=== PATIENT | female | born 1930 | race Caucasian/White ===

== ENCOUNTER → 2017-01-04 | Outpatient (CLI) | payer BC ==
[~2017-01-04] MED LIST: CMD/25 PO; FOLIC ACID PO; HYDR-5688 PO; IRON PO; LEVO50TA PO; MACU HEALTH PO; METO-478 PO; OMEP20TA14 PO; SUMA100T16 PO; VITAMIN B12 PO; VITAMIN B6 PO; WARF5INJ PO
[2017-01-04 17:52] LABS: BASO % 0.3 %; BASO ABS # 0.02 K/uL (0-0.2); COMPLETE YES; EOS % 1.5 %; HEMATOCRIT 39.2 % (37-47); IG% 0.1 %; LYMPH % 35.4 %; LYMPH ABS # 2.43 K/uL (1.2-3.4); MEAN CORPUSCULAR HEMOGLOBIN 31.7 pg (25-34); MEAN CORPUSCULAR HGB CONC 32.7 g/dl (32-36); MEAN PLATELET VOLUME 9.9 fL (7.4-10.4); MONO % 11.4 %; NEUT % 51.3 %; PLATELET COUNT 293 K/uL (130-400); RED BLOOD COUNT 4.04 M/uL (4.2-5.4); WHITE BLOOD COUNT 6.86 K/uL (4.8-10.8)
[2017-01-04 18:31] LABS: ALT/SGPT 21 U/L (12-78); AST/SGOT 20 U/L (15-37); BLOOD UREA NITROGEN 19 mg/dl (7-18); BUN/CREATININE RATIO 22.8 (10-20); CARBON DIOXIDE 24 mmol/L (21-32); CHLORIDE 107 mmol/L (98-107); CHOLESTEROL 209 mg/dl (0-200); CREATININE 0.81 mg/dl (0.60-1.20); GLUCOSE 81 mg/dl (70-99); POTASSIUM 4.6 mmol/L (3.5-5.1); SODIUM 143 mmol/L (136-145); TRIGLYCERIDES 129 mg/dl (0-150); VERY LOW DENSITY LIPOPROT CALC 26 mg/dl
[2017-01-04 18:42] LABS: ALB/GLOB RATIO 1.1 (0.9-2); ALKALINE PHOSPHATASE 90 U/L (45-117); HDL CHOLESTEROL 70 mg/dl; LDL CHOLESTEROL CALCULATED 113 mg/dl
[2017-01-04 19:02] LABS: CALCIUM 9.7 mg/dl (8.5-10.1)
--- NOTE | 2017-01-10 09:36 | CODING QUERY MEDICAL NECESSITY ---
SUPPORTING DIAGNOSIS NEEDED Dr. Carrasquillo, A supporting diagnosis is required for the test/procedure performed on this patient in order for us to be reimbursed by the patient's insurance. Please provide a supporting diagnosis for the following test/procedure listed below next to the test name along with your signature. *If there is no additional diagnosis for this patient that would support the following test/procedure please document that below next to the test/procedure. Test(s)/Procedure(s) that require a supporting diagnosis: * ([id number]) B12 VITAMIN LEVEL DIAGNOSIS: DATE OF SERVICE: 01/04/17 Provider Signature: Date: Thank you Mc Alfaro [facility] Information Management Once completed, please kindly fax back to [phone] For questions please call [phone]
== END | disposition home or self-care (01) ==
LOC: C.LABBFT 11:47
PROVIDERS: ATTEND Internal Medicine
DX: Z00.00 Encounter for general adult medical examination without abnormal findings (principal); E03.9 Hypothyroidism, unspecified; R41.89 Other symptoms and signs involving cognitive functions and awareness; E78.5 Hyperlipidemia, unspecified; I48.91 Unspecified atrial fibrillation; M81.0 Age-related osteoporosis without current pathological fracture; R41.3 Other amnesia

== ENCOUNTER → 2017-07-14 | Outpatient (CLI) | payer BC ==
--- NOTE | 2017-07-14 19:19 | DIAGNOSTIC IMAGING REPORT ---
R RIBS UNILATERAL WITH PA CHEST CLINICAL HISTORY: FALL-RIGHT LOWER ANTERIOR RIB PAIN COMPARISON STUDY: Chest 01/28/2011. FINDINGS: The lungs remain hyperexpanded. Slightly displaced right lateral fourth and fifth rib fractures. No pneumothorax. Mild interstitial thickening is likely chronic. Large hiatus hernia, unchanged. The heart is normal in size. No new focal lung consolidations. Trace right pleural effusion. IMPRESSION: 1. Mildly displaced right lateral fourth and fifth rib fractures. 2. Trace right pleural effusion versus hemothorax. 3. No pneumothorax. Electronically signed by: Dusty Petit M.D. 07/14/2017 7:18 PM Dictated Date/Time: 07/14/2017 7:15 PM
== END | disposition home or self-care (01) ==
LOC: C.RAD 18:40
PROVIDERS: ATTEND Internal Medicine
DX: S22.41XA Multiple fractures of ribs, right side, initial encounter for closed fracture (principal); W19.XXXA Unspecified fall, initial encounter

== ENCOUNTER → 2017-07-27 | Outpatient (CLI) | payer BC ==
[~2017-07-27] MED LIST changes: +APIX1TAB3 PO; +ASPI81TA28 PO; +ATOR-22 PO; +ATOR10TA82 PO; +CHOL2000 PO; +CYAN100020 PO; +ELQ25 PO; +FERR1TAB23 PO; +FURO-85 PO; +LEVO75TA PO; +METO25TA3 PO; +OMEPRAZOLE PO; +OXYC-57 PO; +OXYC-737 PO; +OXYC-90 PO; +SERT-234 PO; +TRAM-10 PO
--- NOTE | 2017-07-27 14:11 | DIAGNOSTIC IMAGING REPORT ---
CHEST 2 VIEWS ROUTINE CLINICAL HISTORY: J90 Pleural [id number] dyspnea COMPARISON STUDY: 10/26/2011 FINDINGS: Mild cardia megaly. Fixed hiatal hernia. Lungs are clear. Mild chronic apical fibrotic change. IMPRESSION: Chronic change. Fixed hiatal hernia. No acute process. The above report was generated using voice recognition software. It may contain grammatical, syntax or spelling errors. Electronically signed by: Davidson Gonzalez M.D. 07/27/2017 2:10 PM Dictated Date/Time: 07/27/2017 1:56 PM
== END | disposition home or self-care (01) ==
LOC: C.RAD1850 13:32
PROVIDERS: ATTEND Internal Medicine
DX: J90 Pleural effusion, not elsewhere classified (principal)

== ENCOUNTER 2017-11-04 11:44 | Emergency (ER) | payer BC ==
[~2017-11-04] VITALS: Ht 160 cm; Wt 62.0 kg
[~2017-11-04 11:44] MED LIST changes: -APIX1TAB3 PO; -ASPI81TA28 PO; -ATOR-22 PO; -ATOR10TA82 PO; -CHOL2000 PO; -CYAN100020 PO; -ELQ25 PO; -FERR1TAB23 PO; -FURO-85 PO; -LEVO75TA PO; -MACU HEALTH PO; -METO25TA3 PO; -OMEP20TA14 PO; -OMEPRAZOLE PO; -OXYC-57 PO; -OXYC-737 PO; -OXYC-90 PO; -SERT-234 PO; -SUMA100T16 PO; -TRAM-10 PO
[2017-11-04 11:47] VITALS: TEMP 36.4; Ht 160 cm; Wt 62.0 kg
[2017-11-04] MEDS ORDERED: ONDANSETRON INJ 2 MG/ML 2 ML VIAL IV STA (12:02)
[2017-11-04] MEDS ORDERED: MoRPHine SULFATE 4 MG/ML 1 ML CARP\\VIAL IV STA (12:02)
--- NOTE | 2017-11-04 12:54 | DIAGNOSTIC IMAGING REPORT ---
CT OF THE HEAD WITHOUT CONTRAST CLINICAL HISTORY: Fall with head injury. COMPARISON STUDY: Head CT February 28, 2012. TECHNIQUE: Helical axial images of the head were obtained without IV contrast. Automated exposure control was utilized for the study. A dose lowering technique was utilized adhering to the principles of ALARA. FINDINGS: No acute intracranial hemorrhage, midline shift or mass effect is present. Ventricular system is unremarkable for age. The basilar cisterns are patent. Old left frontal lobe infarct is noted. Multiple white matter hypodensities are unchanged. There are no findings to suggest acute dural sinus thrombosis or acute territorial infarct. There is no calvarial fracture. Facial bones will be reported separately. IMPRESSION: 1. No acute intracranial findings. 2. No calvarial fracture. 3. 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 Electronically signed by: Jeffrey Carrasquillo M.D. 11/04/2017 12:53 PM Dictated Date/Time: 11/04/2017 12:50 PM
--- NOTE | 2017-11-04 12:58 | DIAGNOSTIC IMAGING REPORT ---
CT OF THE CERVICAL SPINE WITHOUT CONTRAST CLINICAL HISTORY: Fall. COMPARISON STUDY: Cervical spine MRI April 27, 2012. TECHNIQUE: Helical axial images of the cervical spine were obtained without IV contrast. Sagittal and coronal reconstructions were viewed. A dose lowering technique was utilized adhering to the principles of ALARA. FINDINGS: The craniocervical junction is intact. No acute cervical spine fracture is present. There is moderate to severe multilevel degenerative disc disease and facet arthrosis of the cervical spine. There is no prevertebral edema. There is no pneumothorax within visualized portions of the lung apices. IMPRESSION: No acute cervical spine fracture or subluxation. Electronically signed by: Jeffrey Carrasquillo M.D. 11/04/2017 12:56 PM Dictated Date/Time: 11/04/2017 12:53 PM
--- NOTE | 2017-11-04 13:00 | DIAGNOSTIC IMAGING REPORT ---
CT SCAN OF THE FACIAL BONES WITHOUT IV CONTRAST CLINICAL HISTORY: Fall. Facial injury. COMPARISON STUDY: CT scan of the paranasal sinuses dated 07/31/2008. TECHNIQUE: High-resolution CT scan of the facial bones is performed. Images are reviewed in the axial, sagittal, and coronal planes. IV contrast was not administered for this examination. A dose lowering technique was utilized adhering to the principles of ALARA. FINDINGS: The skeletal structures are osteopenic. There is a minimally depressed and age indeterminant fracture of the right nasal bone. No additional facial bone fracture is identified. The bony nasal septum is intact noting rightward deviation. The bony orbits are intact and the orbital contents are within normal limits noting bilateral ocular lens implants. The zygomatic arches and pterygoid plates are preserved. The maxilla and mandible are intact. Advanced degenerative change is seen in the temporomandibular joints. There are no layering blood products within the paranasal sinuses. Trace mucosal thickening is seen in the right maxillary antrum. The remaining paranasal sinuses and the mastoid air cells are clear. The visualized calvarium appears intact. The upper cervical spine appears maintained noting multilevel spondylosis. Brain parenchyma demonstrates age-related involutional change. Left frontal encephalomalacia is consistent with a remote infarct. There is atherosclerotic calcification of the left carotid bulb. IMPRESSION: 1. There is an age indeterminant and minimally depressed fracture of the right nasal bone. 2. No additional facial bone fracture is identified. 3. Additional findings as above. Electronically signed by: Tyler Mata M.D. 11/04/2017 12:59 PM Dictated Date/Time: 11/04/2017 12:53 PM
--- NOTE | 2017-11-04 13:04 | DIAGNOSTIC IMAGING REPORT ---
R HUMERUS MIN 2 VIEWS ROUTINE HISTORY: 87 years-old Female r shoulder pain acute right arm pain status post fall COMPARISON: None available TECHNIQUE: 2 views of the right humerus FINDINGS: There is an acute displaced and angulated obliquely oriented fracture of the mid to distal diaphyseal humerus with 1.6 cm lateral displacement and 20 degrees apex lateral angulation. Moderate soft tissue swelling. The bones are moderately demineralized with degenerative changes seen about the elbow and shoulder. IMPRESSION: Acute displaced and angulated mid to distal diaphyseal humeral fracture with underlying osteopenic appearance of the bones. The above report was generated using voice recognition software. It may contain grammatical, syntax or spelling errors. Electronically signed by: Ti Del Cid M.D. 11/04/2017 1:02 PM Dictated Date/Time: 11/04/2017 1:01 PM
[2017-11-04] MEDS ORDERED: OXYC1TAB3 PO (14:12)
[2017-11-04 15:00] VITALS: BP 103/52; PULSE 65; O2SAT 90
--- NOTE | 2017-11-04 16:35 | EMERGENCY ROOM VISIT NOTE ---
History Report prepared by Wedny: Jerrica Langston Under the Supervision of: Dr. Eliel De La Garza D.O. First contact with patient: 11:51 Chief Complaint: FALL Stated Complaint: FELL, RIGHT ARM PAIN History of Present Illness The patient is a 87 year old female who presents to the Emergency Room with complaints of an episode of a fall occurring about an hour ago. The patient states she was wearing new shoes and she states when she was walking her one shoe came off which tripped her. She states she fell forward and hit her nose on the ground. She reports some right arm pain. She states "I think I broke my arm". Pain is a 10 out of 10 and constant in the right upper arm. Movement. Does improve with rest. No paresthesias. No numbness. She denies loss of consciousness. Pt denies headache, change in vision, fevers, chest pain, shortness of breath, neck pain, leg pain, nausea, vomiting, diarrhea, pain with urination, and melena. The patient is not on any blood thinners. Source of History: patient Onset: an hour ago Position: other (generalized) Quality: other (fall) Timing: other (episode) Associated Symptoms: No LOC, No fevers, No headache, No chest pain, No SOB, No nausea, No vomiting, No urinary symptoms Review of Systems See HPI for pertinent positives & negatives. A total of 10 systems reviewed and were otherwise negative. Past Medical & Surgical Medical Problems: (1) Gastroesophageal reflux disease (2) Hyperlipidemia (3) Migraine with typical aura Family History Patient reports no known family medical history. Social History Smoking Status: Never Smoker Alcohol Use: none Marital Status: Occupation Status: retired Current/Historical Medications Scheduled Levothyroxine Sodium (Synthroid), 50 MCG PO DAILY Metoprolol Succinate (Toprol Xl), 12.5 MG PO BID Omeprazole Magnesium (Prilosec Otc), 20 MG PO DAILY Sumatriptan Succinate (Imitrex), 50 MG PO PRN Warfarin Sod (Coumadin), 2.5 MG PO DAILY Warfarin Sodium (Coumadin), 5 MG PO TTH [Folic Acid], 1 TAB PO DAILY [Iron], 65 MCG PO DAILY [[facility]], 1 TAB PO DAILY [Vitamin B12], 1 TAB PO DAILY [Vitamin B6], 1 TAB PO DAILY Scheduled PRN Hydrocodone/Acetaminophen 5MG/325MG ([place] 5MG/325MG), 1 TABLET PO DAILY PRN for Pain Oxycodone Immediate Rel Tab (Roxicodone Ir), 5 MG PO Q6H PRN for Pain Allergies Coded Allergies: Prednisone (Verified Adverse Reaction, Mild, SEVERE EYE LID DROPPING, ) Physical Exam Vital Signs Date Time Temp Pulse Resp B/P (MAP) Pulse Ox O2 Delivery O2 Flow Rate FiO2 11/04/17 15:00 65 12 103/52 90 11/04/17 14:08 62 16 105/53 94 11/04/17 11:47 36.4 56 20 101/56 96 Room Air Physical Exam GENERAL: alert, well appearing, well nourished, no distress, non-toxic HEAD: normal cephalic, bruising over bridge of nose. EYE EXAM: normal conjunctiva, PERRL and EOM's grossly intact OROPHARYNX: no exudate, no erythema, lips, buccal mucosa, and tongue normal and mucous membranes are moist EARS: TMs clear b/l NECK: supple, no nuchal rigidity, no adenopathy, non-tender CHEST: stable to compression anteriorly and posteriorly LUNGS: clear to auscultation. Normal chest wall mechanics HEART: no murmurs, S1 normal and S2 normal ABDOMEN: abdomen soft, non-tender, normo-active bowel sounds, no masses, no rebound or guarding. PELVIS: stable to compression anteriorly and posteriorly BACK: Back is symmetrical on inspection and there is no deformity, no midline tenderness, no CVA tenderness. UPPER EXTREMITIES: Significant pain on palpation of right mid-humorous, radial pulses 2/4 full active and passive ROM of all extremities besides right humerus. She does have a good grasp along with abduction and flexion extension of the right wrist. LOWER EXTREMITIES: full active and passive range of motion of all joints without tenderness to palpation NEURO EXAM: Normal sensorium, cranial nerves II-XII grossly intact, normal speech, no gross weakness of legs. GCS: 15. Medical Decision & Procedures ER Provider Diagnostic Interpretation: Radiology results as stated below per my review and the radiologist's interpretation: CT OF THE CERVICAL SPINE WITHOUT CONTRAST CLINICAL HISTORY: Fall. COMPARISON STUDY: Cervical spine MRI April 27, 2012. TECHNIQUE: Helical axial images of the cervical spine were obtained without IV contrast. Sagittal and coronal reconstructions were viewed. A dose lowering technique was utilized adhering to the principles of ALARA. FINDINGS: The craniocervical junction is intact. No acute cervical spine fracture is present. There is moderate to severe multilevel degenerative disc disease and facet arthrosis of the cervical spine. There is no prevertebral edema. There is no pneumothorax within visualized portions of the lung apices. IMPRESSION: No acute cervical spine fracture or subluxation. Electronically signed by: Jeffrey Carrasquillo M.D. CT OF THE HEAD WITHOUT CONTRAST CLINICAL HISTORY: Fall with head injury. COMPARISON STUDY: Head CT February 28, 2012. TECHNIQUE: Helical axial images of the head were obtained without IV contrast. Automated exposure control was utilized for the study. A dose lowering technique was utilized adhering to the principles of ALARA. FINDINGS: No acute intracranial hemorrhage, midline shift or mass effect is present. Ventricular system is unremarkable for age. The basilar cisterns are patent. Old left frontal lobe infarct is noted. Multiple white matter hypodensities are unchanged. There are no findings to suggest acute dural sinus thrombosis or acute territorial infarct. There is no calvarial fracture. Facial bones will be reported separately. IMPRESSION: 1. No acute intracranial findings. 2. No calvarial fracture. 3. 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 Electronically signed by: Jeffrey Carrasquillo M.D. R HUMERUS MIN 2 VIEWS ROUTINE HISTORY: 87 years-old Female r shoulder pain acute right arm pain status post fall COMPARISON: None available TECHNIQUE: 2 views of the right humerus FINDINGS: There is an acute displaced and angulated obliquely oriented fracture of the mid to distal diaphyseal humerus with 1.6 cm lateral displacement and 20 degrees apex lateral angulation. Moderate soft tissue swelling. The bones are moderately demineralized with degenerative changes seen about the elbow and shoulder. IMPRESSION: Acute displaced and angulated mid to distal diaphyseal humeral fracture with underlying osteopenic appearance of the bones. The above report was generated using voice recognition software. It may contain grammatical, syntax or spelling errors. Electronically signed by: Ti Del Cid M.D. CT SCAN OF THE FACIAL BONES WITHOUT IV CONTRAST CLINICAL HISTORY: Fall. Facial injury. COMPARISON STUDY: CT scan of the paranasal sinuses dated 07/31/2008. TECHNIQUE: High-resolution CT scan of the facial bones is performed. Images are reviewed in the axial, sagittal, and coronal planes. IV contrast was not administered for this examination. A dose lowering technique was utilized adhering to the principles of ALARA. FINDINGS: The skeletal structures are osteopenic. There is a minimally depressed and age indeterminant fracture of the right nasal bone. No additional facial bone fracture is identified. The bony nasal septum is intact noting rightward deviation. The bony orbits are intact and the orbital contents are within normal limits noting bilateral ocular lens implants. The zygomatic arches and pterygoid plates are preserved. The maxilla and mandible are intact. Advanced degenerative change is seen in the temporomandibular joints. There are no layering blood products within the paranasal sinuses. Trace mucosal thickening is seen in the right maxillary antrum. The remaining paranasal sinuses and the mastoid air cells are clear. The visualized calvarium appears intact. The upper cervical spine appears maintained noting multilevel spondylosis. Brain parenchyma demonstrates age-related involutional change. Left frontal encephalomalacia is consistent with a remote infarct. There is atherosclerotic calcification of the left carotid bulb. IMPRESSION: 1. There is an age indeterminant and minimally depressed fracture of the right nasal bone. 2. No additional facial bone fracture is identified. 3. Additional findings as above. Electronically signed by: Tyler Mata M.D. Medications Administered Medications (Trade) Dose Ordered Sig/Katie Route Start Time Stop Time Status Last Admin Dose Admin Morphine Sulfate (MoRPHine SULFATE INJ) 4 mg NOW STAT IV 11/04/17 12:02 11/04/17 12:04 DC 11/04/17 12:24 4 MG Ondansetron HCl (Zofran Inj) 4 mg NOW STAT IV 11/04/17 12:02 11/04/17 12:04 DC 11/04/17 12:23 4 MG ED Course ED COURSE: Vital signs were reviewed and showed normal The patients medical record was reviewed The above diagnostic studies were performed and reviewed. ED treatments and interventions as stated above. 1153: The patient was evaluated in room C11B. A complete history and physical examination was performed. 1202: Ordered Zofran Inj 4 mg IV, Morphine Sulfate 4 mg IV. 1330: I updated the patient on her test results. 1352: I reviewed the patient's case with Dr. Zamora- Orthopedics. He will review the patients imaging. 1503: I updated the patient on her results. 1505: Upon reevaluation, the patient is resting comfortably.I discussed my findings with the patient and she understands and agrees with the treatment plan. Based on the patients age, coexisting illnesses, exam and lab findings the decision to treat as an outpatient was made. The patient remained stable while under my care. The patient appeared well at the time of discharge. Medical Decision Differential diagnoses include major intracranial, cervical, spinal, thoracic, abdominal, pelvic and neurologic injury. Fracture, contusion, sprain, strain, laceration, abrasions included as well. Patient is an 87-year-old female who presents the ER following a mechanical fall. She notes that she tripped and hit her head. Majority of her pain is in her right humerus. She is neurovascularly intact. CT head, cervical spine and face show questionable nasal bone fracture. X-rays of the right humerus show a midshaft fracture. She is neurovascular intact. Dr. Piña since above reviewed images. Recommended being placed in a splint and having her follow-up on Tuesday. She was discharged with OxyIR. She has no other complaints. Discussed with Pt concerning signs and symptoms to watch out for. Pt was instructed to follow up with their PCP and discussed with the patient their option to return to the ED at anytime for persistent or worsening symptoms. The appropriate anticipatory guidance and out-patient management, including indications for return to the emergency department, were explained at length to the patient and understood. Medication Reconcilliation Current Medication List: was personally reviewed by me Blood Pressure Screening Patient's blood pressure: Normal blood pressure Consults Time Called: 1348 Consulting Physician: Dr. Kaiden Grace Returned Call: 1352 I reviewed the patient's case with Dr. Kaiden Grace. He will review the patients imaging Impression Primary Impression: Arm fracture Additional Impression: Fall Scribe Attestation The scribe's documentation has been prepared under my direction and personally reviewed by me in its entirety. I confirm that the note above accurately reflects all work, treatment, procedures, and medical decision making performed by me. Departure Information Dispostion Home / Self-Care Prescriptions Oxycodone Immediate Rel Tab (ROXICODONE IR) 5 Mg Tab 5 MG PO Q6H Y for Pain, #15 TAB Prov: Eliel De La Garza, 11/04/17 Referrals Monserrat Carrasquillo M.D. (PCP) Forms HOME CARE DOCUMENTATION FORM, IMPORTANT VISIT INFORMATION Patient Instructions ED Fx Upper Ext, My [facility] Additional Instructions Please follow up with your primary care doctor with in the next 24 hours. Any worsening of your symptoms, please return to the ED immediately. This includes any fevers greater than 100.4, worsening pain, numbness, weakness or any other concerning signs or symptoms from your standpoint. You were given medications during this visit that will inhibit your ability to drive, operate machinery and work. Please do NOT drive, operate machinery or work for the next 12hrs. You were also given a prescription for a narcotic. While taking this medication you should also not drive, operate machinery and or work. Please follow-up with orthopedics within the next 3 days. Problem Qualifiers Primary Impression: Arm fracture Encounter type: initial encounter Fracture type: closed Laterality: right Qualified Codes: S42.301A - Unspecified fracture of shaft of humerus, right arm, initial encounter for closed fracture Additional Impression: Fall Encounter type: initial encounter Qualified Codes: W19.XXXA - Unspecified fall, initial encounter
[2017-11-06] MEDS ORDERED: SUMA100T16 PO (10:34)
[2017-11-06] MEDS ORDERED: OMEP20TA14 PO (14:20)
[2017-11-06] MEDS ORDERED: MACU HEALTH PO (14:20)
[2017-11-08] MEDS ORDERED: OXYC1TAB3 PO (14:48)
[2017-11-08] MEDS ORDERED: CHOL2000 PO (14:48)
[2017-11-08] MEDS ORDERED: ASPI81TA28 PO (14:48)
== END 2017-11-04 15:00 | disposition home or self-care (01) ==
LOC: C.EDB 11:45 → C.EDC 15:00
DX: S42.301A Unspecified fracture of shaft of humerus, right arm, initial encounter for closed fracture (principal); W18.09XA Striking against other object with subsequent fall, initial encounter; K21.9 Gastro-esophageal reflux disease without esophagitis; E78.5 Hyperlipidemia, unspecified; Z79.01 Long term (current) use of anticoagulants; Z79.899 Other long term (current) drug therapy; Z88.8 Allergy status to other drugs, medicaments and biological substances

== ENCOUNTER 2017-11-06 18:50 | Emergency (ER) | payer BC ==
[~2017-11-06] VITALS: Ht 160 cm; Wt 59.1 kg
[~2017-11-06 18:50] MED LIST changes: +MACU HEALTH PO; +OMEP20TA14 PO; +OXYC1TAB3 PO; +SUMA100T16 PO
[2017-11-06 19:00] VITALS: TEMP 36.6; Ht 160 cm; Wt 59.1 kg
--- NOTE | 2017-11-06 19:38 | EMERGENCY ROOM VISIT NOTE ---
ED Visit Note First contact with patient: 19:23 Staff note: I have reviewed the Patients chart and have discussed this case with my PA. I generally agree with the ED note and findings.
--- NOTE | 2017-11-06 19:44 | EMERGENCY ROOM VISIT NOTE ---
ED Visit Note First contact with patient: 19:23 CHIEF COMPLAINT: Right arm pain status post fracture HISTORY OF PRESENT ILLNESS: This 87-year-old female patient presents to the emergency department, ambulatory, with her daughter, complaining of ongoing upper right arm pain. The patient was here 2 days ago and diagnosed with a humerus fracture. She was placed in an Ortho-Glass splint at that time. Since then, the patient has been taking OxyIR for pain. This does help. She has been incorrectly wearing the sling, and her lower arm has been dangling down low. She has not removed the sling at all to move her joints. She has been having difficulty elevating the arm due to wearing the sling. The patient did report some swelling of the right hand, but denies any numbness, tingling, or discoloration. She has good range of motion and strength in her hand. She is scheduled to see orthopedics tomorrow. REVIEW OF SYSTEMS: A 6 system review of systems was performed with positives and pertinent negatives listed in the history of present illness. All other systems were reviewed and are negative. ALLERGIES: Prednisone PMH: Humerus fracture SOCIAL HISTORY: The patient lives locally with family. She denies drug, alcohol , tobacco use. PHYSICAL EXAM: VITALS: Vitals are noted on the nurse's note and reviewed by myself. Vital signs stable. GENERAL: This is a 87-year-old white female, in no acute distress, nondiaphoretic, well-developed well-nourished. MUSCULOSKELETAL: No significant edema, erythema, or discoloration of the right upper extremity. Strength in the right forearm and hands 5/5. The patient has full range of motion at the wrist, fingers, and shoulder. She is neurovascularly intact, capillary refill less than 5 seconds. EMERGENCY DEPARTMENT COURSE: The patient was seen and evaluated as above. On initial evaluation, nursing staff noted that the patient's arm had not been elevated in the sling. The sling was back towards the elbow, and the arm was tingling toward the patient's side. Upon readjusting the sling and elevating the arm, the swelling and pain improved. I suspect the patient's immobility is causing her increased discomfort. She was given proper home care instructions, and encouraged to follow-up outpatient tomorrow with her orthopedic surgeon. The patient was seen and evaluated by Dr. De La Garza. Discharge instructions reviewed, the patient was discharged home in good condition. I attest that I have personally reviewed the patient's current medication list. Patient was found to have normal blood pressure on screening and does not require follow-up. Differential diagnosis includes fracture, sprain, contusion, DVT, neurovascular compromise, and others DIAGNOSIS: Right humerus fracture, subsequent encounter, right arm pain The chart was completed utilizing [employer] Speech voice recognition software. Grammatical errors, random word insertions, pronoun errors, and incomplete sentences are an occasional consequence of this system due to software limitations, ambient noise, and hardware issues. Any formal questions or concerns about the content, text, or information contained within the body of this dictation should be directly addressed to the provider for clarification. Problem List Medical Problems: (1) Gastroesophageal reflux disease Status: Chronic (2) Hyperlipidemia Status: Chronic (3) Migraine with typical aura Status: Chronic Current/Historical Medications Scheduled Atorvastatin (Lipitor), 20 MG PO DAILY Cyanocobalamin (Vitamin B12), 1,000 MCG PO DAILY Ferrous Sulfate (Iron), 325 MG PO DAILY Levothyroxine Sodium (Synthroid), 75 MCG PO DAILY Metoprolol Succ (Toprol Xl) (Toprol-Xl), 25 MG PO DAILY Omeprazole Magnesium (Prilosec Otc), 20 MG PO DAILY Sertraline (Zoloft), 100 MG PO DAILY Sumatriptan Succinate (Imitrex), 50 MG PO PRN [[facility]], 1 TAB PO DAILY Scheduled PRN Furosemide (Lasix), 20 MG PO DAILY PRN for periperal edema Oxycodone Immediate Rel Tab (Roxicodone Ir), 5 MG PO Q6H PRN for Pain Tramadol (Ultram), 50 MG PO Q4 PRN for Pain Allergies Coded Allergies: Prednisone (Verified Adverse Reaction, Mild, SEVERE EYE LID DROPPING, ) Vital Signs Date Time Temp Pulse Resp B/P (MAP) Pulse Ox O2 Delivery O2 Flow Rate FiO2 11/06/17 19:37 101 18 106/77 93 Room Air 11/06/17 19:00 36.6 99 18 90/56 93 Room Air Departure Information Impression Primary Impression: Arm pain, right Additional Impression: Humerus fracture Dispostion Home / Self-Care Condition GOOD Referrals Monserrat Carrasquillo M.D. (PCP) Wang Zamora M.D. Patient Instructions Humerus Fx, My [facility] Additional Instructions You were seen in the emergency department today for a recheck of the right humerus fracture. As discussed, I suspect the increased pain you are experiencing is related to improperly wearing the sling. Use pain medication as previously prescribed. Ice compresses for 20 minutes at a time four times daily for 2-3 days Use the sling as instructed. Remove your arm from the sling 4-6 times a day and move all the joints around to keep them loose. Rest and elevate your injury. Do not get the splint wet. If your splint feels excessively tight, you have worsening pain, develop numbness or tingling, or your digits appear blue, loosen the jeanie wrap. Then reapply the jeanie wrap gently without removing the splint. If your symptoms are not quickly relieved return to the ER for re- evaluation. Return to the ER immediately for any numbness, tingling, severe pain, extreme swelling in the extremity or as needed. Follow-up with orthopedics tomorrow at your scheduled appointment. Follow-up with your primary care physician in 2 to 3 days for a recheck of your current condition. Problem Qualifiers Additional Impression: Humerus fracture Encounter type: subsequent encounter Humerus Location: shaft Fracture type : closed Fracture morphology: unspecified fracture morphology Laterality: right Fracture healing: with routine healing Qualified Codes: S42.301D - Unspecified fracture of shaft of humerus, right arm, subsequent encounter for fracture with routine healing
[2017-11-06] MEDS ORDERED: CYAN100020 PO (20:01)
[2017-11-06] MEDS ORDERED: FERR1TAB23 PO (20:01)
[2017-11-06] MEDS ORDERED: LEVO75TA PO (20:01)
[2017-11-06] MEDS ORDERED: METO25TA3 PO (20:01)
[2017-11-06] MEDS ORDERED: TRAM-10 PO (20:01)
[2017-11-06] MEDS ORDERED: FURO-85 PO (20:01)
[2017-11-06] MEDS ORDERED: ATOR-22 PO (20:01)
[2017-11-06] MEDS ORDERED: SERT-234 PO (20:01)
[2017-11-06 20:03] VITALS: BP 106/77; PULSE 101; O2SAT 93
[2017-11-07] MEDS ORDERED: GELATIN SPONGE 12-7MM ONE (00:36)
[2017-11-08] MEDS ORDERED: CHOL2000 PO (14:48)
[2017-11-08] MEDS ORDERED: OXYC1TAB3 PO (14:48)
[2017-11-08] MEDS ORDERED: ASPI81TA28 PO (14:48)
== END 2017-11-06 20:06 | disposition home or self-care (01) ==
LOC: C.EDB 18:51 → C.EDC 20:06
DX: S42.301A Unspecified fracture of shaft of humerus, right arm, initial encounter for closed fracture (principal); X58.XXXA Exposure to other specified factors, initial encounter; K21.9 Gastro-esophageal reflux disease without esophagitis; E78.5 Hyperlipidemia, unspecified; Z88.8 Allergy status to other drugs, medicaments and biological substances

== ENCOUNTER 2017-11-10 07:45 | Inpatient (IN) | payer BC, OTHER ==
[2017-11-08 14:57] VITALS: BMI 23.0
--- NOTE | 2017-11-08 17:25 | HISTORY & PHYSICAL EXAMINATION ---
DATE OF ADMISSION: 11/10/2017 SUBJECTIVE CHIEF COMPLAINT: Right shoulder pain. HISTORY OF PRESENT ILLNESS: The patient is an 87-year-old female who presented to the office with right shoulder pain. She states that her symptoms began on 11/04/2017 as a result of a fall. She describes the pain as aching, sharp, and throbbing. She had previous x-rays that demonstrated a displaced humeral shaft fracture with a 1 cm gap. PAST MEDICAL HISTORY: Significant for atrial fibrillation, hypercholesterolemia, anxiety, depression, hypothyroidism, and GERD. PAST SURGICAL HISTORY: Hysterectomy, appendectomy, bilateral total knee arthroplasty, removal of her intestine about 8 inches. SOCIAL HISTORY: She denies alcohol use. She denies smoking or tobacco use. She denies IV or illegal drug use. She lives in a 1-story house. Currently she is retired. FAMILY HISTORY: Mom had a history of a stroke. ALLERGIES: PREDNISONE. MEDICATIONS: Vitamin B12, tramadol, simvastatin, Prilosec, metoprolol, Macuvite, levothyroxine, Imitrex, Coumadin, vitamin E, vitamin D, topiramate, magnesium, folic acid, aspirin 81 mg, and Percocet 5 mg/325 mg. REVIEW OF SYSTEMS: She denies headaches, fevers, chills, double vision, blurry vision, sore throat, cough, chest pain, nausea, vomiting, diarrhea, constipation, numbness, tingling, tired, urinary difficulties, thoughts to harm herself or harm others or depression. She is positive for joint pain, joint stiffness of the right shoulder. OBJECTIVE: GENERAL APPEARANCE: The patient is an 87-year-old female, sitting, in no acute distress. She is well dressed, well nourished. She is awake, alert, and oriented x3. VITAL SIGNS: She is 5 feet 3 inches tall. She weighs 130 pounds. Blood pressure is 110/60. HEENT: Normocephalic, atraumatic. Extraocular movements are intact. Mucosa was moist. No septal deviation. NECK: Neck supple with no lymphadenopathy, no JVD, no thyromegaly. HEART: There is a systolic murmur noted in the aortic position and her heart rate is irregularly irregular. LUNGS: Clear to auscultation. ABDOMEN: Soft, nontender, nondistended. Normal bowel sounds. No hepatosplenomegaly. EXTREMITIES: Paying particular attention to the right upper extremity. She has diffuse ecchymosis along the humeral shaft and into the shoulder. She has decreased range of motion and decreased strength secondary to pain and inability to move her arm due to pain. NEUROLOGIC: Cranial nerves II-XII were intact. Pulses were compared bilaterally and were equal. IMAGING: X-rays demonstrated a displaced humeral shaft fracture with 1 cm gap. IMPRESSION: Displaced humeral shaft fracture. PLAN: The patient is scheduled for an ORIF of her right humerus fracture. Risks and benefits, and alternatives to the surgery were discussed with the patient and included but not limited to infection, DVT, pain, stiffness, nonunion, need for revision surgeries, failure to relieve all symptoms, progression of arthritis, damage to blood vessels, damage to nerves, anesthesia risks, were all discussed with the patient. The patient understands these risks and wishes to proceed. All questions were answered to her satisfaction. TONI
[~2017-11-10] VITALS: Ht 160 cm; Wt 61.0 kg
[2017-11-10] VITALS (10 sets, daily range): BP systolic 118–140; BP diastolic 59–92; PULSE 63–77; TEMP 36.6–39.6; O2SAT 95–100; Ht 160 cm; Wt 61.0 kg
[~2017-11-10 07:45] MED LIST changes: +ASPI81TA28 PO; +ATROPINE SULFATE 0.1 MG/ML 5ML SYR IV PRN; +CEFAZOLIN 1000MG IV PUSH 7.5 ML IV SCH; +CHOL2000 PO; -CMD/25 PO; +CYAN100020 PO; +EpHEDrine SULFATE INJ 50 MG/ML AMP IV PRN; +FENTANYL CITRATE INJ 50 MCG/1 ML 2 ML VIAL IV PRN; -FOLIC ACID PO; +FURO-85 PO; -HYDR-5688 PO; +HYDROmorphone INJ 2 MG/ML SYR/VIAL IV PRN; -IRON PO; +LABETALOL HCL IV 5 MG/ML 20ML IV PRN; +LACTATED RINGER'S 1000ML 1,000 ML IV SCH; -LEVO50TA PO; +LEVO75TA PO; -MACU HEALTH PO; -METO-478 PO; +METO25TA3 PO; -OMEP20TA14 PO; +ONDANSETRON INJ 2 MG/ML 2 ML VIAL IV PRN; +PHENYLEPHRINE 100MCG/ML 5ML SYR IV PRN; +SERT-234 PO; +TRAM-10 PO; -VITAMIN B12 PO; -VITAMIN B6 PO; -WARF5INJ PO
[2017-11-10] MEDS ORDERED: ROPIVACAINE 0.5% 5 MG/ML 30 ML VIAL ONE (07:50)
--- NOTE | 2017-11-10 08:14 | History & Physical Bridge Note ---
H&P Re-Evaluation Bridge Note: I have examined the patient, reviewed the History & Physical and in the interval since the performance of the History & Physical I have noted the following changes of clinical significance: No changes noted
[2017-11-10] MEDS ORDERED: OMEPRAZOLE PO (08:29)
[2017-11-10] MEDS ORDERED: NURSING VERBAL MED ORDER ONE (08:30)
[2017-11-10 08:35] LABS: HEMATOCRIT 31.2 % (37-47); HEMOGLOBIN 10.1 g/dL (12.0-16.0); MEAN CELL VOLUME 94.8 fL (80-100); MEAN CORPUSCULAR HEMOGLOBIN 30.7 pg (25-34); MEAN PLATELET VOLUME 8.7 fL (7.4-10.4); PLATELET COUNT 258 K/uL (130-400); RED CELL DISTRIBUTION WIDTH CV 14.1 % (11.5-14.5); RED CELL DISTRIBUTION WIDTH SD 48.7 fL (36.4-46.3); WHITE BLOOD COUNT 7.05 K/uL (4.8-10.8)
[2017-11-10 08:59] LABS: CALCIUM 8.7 mg/dl (8.5-10.1); CREATININE 0.73 mg/dl (0.60-1.20); POTASSIUM 4.1 mmol/L (3.5-5.1)
[2017-11-10 09:04] LABS: MEAN CORPUSCULAR HGB CONC 32.4 g/dl (32-36)
[2017-11-10] MEDS ORDERED: PERFLUTREN LIPID MICROSPHERE (DEFINITY) IV ONE (10:19)
--- NOTE | 2017-11-10 11:16 | ECHOCARDIOGRAM REPORT ---
*NOTICE TO RECEIVING [employer] This information is strictly Confidential and protected under [place] law. [place] law prohibits you from making any further disclosure of this information unless further disclosure is expressly permitted by the written consent of the person to whom it pertains or is authorized by law. A general authorization for the release of medical or other information is not sufficient for this purpose. Hospital accepts no responsibility if the information is made available to any other person, INCLUDING THE PATIENT. Interpretation Summary * Name: PEDRO SCHNEIDER Study Date: 11/10/2017 09:29 AM BP: 140/83 mmHg * Patient Location: [facility] HR: 61 * : 1930 (M/d/yyyy) Gender: Female Height: 63 in * Age: 87 yrs Ethnicity: [place] Weight: 132 lb * Ordering Physician: Alva Da Silva * Referring Physician: Wang Zamora * Performed By: Tatianna Lucas RDCS * * Reason For Study: PRE-OP, * BSA: 1.6 m2 * -- Conclusions -- * 1. Normal left ventricular size and systolic function. EF 60-65%. No regional wall motion abnormalities. Mild concentric left ventricular hypertrophy. No significant diastolic dysfunction. * 2. Moderate biatrial dilation. * 3. Mild to moderate aortic stenosis with trace regurgitation. * 4. Mild mitral regurgitation. * 5. Normal estimated right ventricular systolic pressure. * 6.Technically difficult study, enhanced with IV Definity. * 7. Compared to prior study on 01/28/2011, [id number] aortic stenosis is now present. Procedure Details * A contrast injection of Definity was performed to improve assessment of LV function. * Contrast was injected into an intravenous site in the left arm. * One vial of Definity ultrasound contrast was diluted in normal saline to a total volume of 10 ml. A total of '2' ml of solution was administered during imaging. * Lot # [id number] of Definity utilized for procedure. * Expiration date NOV 10. * The attending nurse who injected the contrast agent was DOMINIQUE JERONIMO RN. Left Ventricle * Normal left ventricular size and systolic function. EF 60-65%. No regional wall motion abnormalities. Mild concentric left ventricular hypertrophy. No significant diastolic dysfunction Right Ventricle * The right ventricle is normal in size and function. * The right ventricular systolic function is normal as assessed by tricuspid annular plane systolic excursion (TAPSE) (normal >1.5 cm). Atria * The left atrium is moderately dilated. * The right atrium is moderately dilated. * There is no evidence of atrial septal defect, but resolution does not allow assessment for a patent foramen ovale. Mitral Valve * There is mild mitral annular calcification. * There is no mitral valve stenosis. * There is mild mitral regurgitation. Tricuspid Valve * There is no tricuspid stenosis. * There is mild to moderate tricuspid regurgitation. Aortic Valve * The aortic valve is trileaflet. * Dimensionless index 0.28. Aortic stenosis appears mild based on transvalvular velocity and mean gradient. Aortic valve area and dimensionless index suggests moderate stenosis. Visually, the aortic valve does not appear to be severely stenotic. * Trace aortic regurgitation. Pulmonic Valve * The pulmonary valve is inadequately visualized, but the Doppler data is adequate for interpretation. * There is no pulmonic valvular stenosis. * Trace pulmonic valvular regurgitation. Great Vessels * The aortic root is normal size. * Aortic arch of normal dimension. Pericardium/Pleural * There is no pericardial effusion. Great Vessels * Normal inferior vena cava size and collapsability with sniff indicates a normal right atrial pressure of 3 mmHg MMode 2D Measurements and Calculations IVSd 1.2 cm IVSs 1.4 cm LVPWd 1.2 cm LVPWs 1.6 cm IVS/LVPW 0.99 % IVS thick 22.5 % % LVPW thick 37.6 % Ao root diam 3.1 cm Ao root area 7.5 cm\S\2 LVOT diam 2.2 cm LVOT area 3.6 cm\S\2 LVAd ap4 23.0 cm\S\2 LVLd ap4 7.2 cm EDV(MOD-sp4) 62.0 ml EDV(sp4-el) 62.4 ml LVAs ap4 11.9 cm\S\2 LVLs ap4 6.0 cm ESV(MOD-sp4) 20.1 ml ESV(sp4-el) 20.2 ml EF(MOD-sp4) 67.6 % EF(sp4-el) 67.7 % SV(MOD-sp4) 41.9 ml SI(MOD-sp4) 25.8 ml/m\S\2 SV(sp4-el) 42.2 ml SI(sp4-el) 26.1 ml/m\S\2 Doppler Measurements and Calculations MV E max kunal 91.7 cm/sec MV A max kunal 51.8 cm/sec MV E/A 1.8 MV dec time 0.25 sec Ao V2 max 269.0 cm/sec Ao max PG 29.0 mmHg Ao max PG (full) 26.7 mmHg Ao V2 mean 187.0 cm/sec Ao mean PG 15.7 mmHg Ao mean PG (full) 14.5 mmHg Ao V2 VTI 74.0 cm JAKI(I,A) 1.0 cm\S\2 JAKI(I,D) 1.0 cm\S\2 JAKI(V,A) 1.0 cm\S\2 JAKI(V,D) 1.0 cm\S\2 LV V1 max PG 2.2 mmHg LV V1 mean PG 1.3 mmHg LV V1 max 74.6 cm/sec LV V1 mean 52.9 cm/sec LV V1 VTI 20.6 cm SV(Ao) 553.0 ml SI(Ao) 341.2 ml/m\S\2 SV(LVOT) 74.8 ml SI(LVOT) 46.1 ml/m\S\2 TR max kunla 257.3 cm/sec RVSP(TR) 29.6 mmHg RAP systole 3.0 mmHg
[2017-11-10] MEDS ORDERED: NEOSTIGMINE METHYLSULFATE 5 MG/5 ML SYR ONE (12:58)
[2017-11-10] MEDS ORDERED: ONDANSETRON INJ 2 MG/ML 2 ML VIAL ONE (12:58)
[2017-11-10] MEDS ORDERED: LIDOCAINE HCL 2% 2 ML VIAL (20MG/ML) ONE (12:58)
[2017-11-10] MEDS ORDERED: PROPOFOL IV EMULSION 10 MG/ML 20 ML VIAL IV ONE (12:58)
[2017-11-10] MEDS ORDERED: EpHEDrine SULFATE INJ 50 MG/ML AMP ONE (12:58)
[2017-11-10] MEDS ORDERED: DEXAMETHASONE SOD INJ 4 MG/ML VIAL ONE (12:58)
[2017-11-10] MEDS ORDERED: ROCURONIUM BROMIDE 10 MG/ML 5 ML VIAL IV ONE (12:58)
[2017-11-10] MEDS ORDERED: LARYING-O-JET KIT (LTA) ONE (12:58)
[2017-11-10] MEDS ORDERED: GLYCOPYRROLATE INJ 0.2 MG/ML VIAL ONE (12:58)
[2017-11-10] MEDS ORDERED: FENTANYL CITRATE INJ 50 MCG/1 ML 2 ML VIAL ONE (13:02)
[2017-11-10] MEDS ORDERED: PHENYLEPHRINE HCL INJ 10 MG/ML VIAL ONE (14:52)
--- NOTE | 2017-11-10 15:40 | [facility] Operative Report ---
Operative Report Operative Date Nov 10, 2017. Pre-Operative Diagnosis Displaced right humeral shaft fracture Post-Operative Diagnosis same as preop Procedure(s) Performed Right Humerus Open Reduction Internal Fixation Surgeon Dr Zamora Speed Belt Sander Surgeon(s) Home Peoples PA-C Estimated Blood Loss 100 ml Findings As above Specimens none Drains None Anesthesia Type General Regional Complication(s) none Disposition Recovery Room / PACU Indications The patient is an 87-year-old female who sustained a displaced right humerus fracture. Given the amount of angulation and displacement I recommended open reduction and internal fixation. Description of Procedure Risks, benefits and alternatives to surgery including, but not limited to, infection DVT, pain, stiffness, need for revision surgery, failure to relieve all symptoms, damage to blood vessels, damage to nerves particularly the ulnar nerve, risk of anesthesia were discussed with the patient and they wished to proceed. The patient was identified. Laterality was confirmed and marked. The patient received a preoperative antibiotic as well as an interscalene block. They were transferred to the operating room and placed in the supine position and induced into general endotracheal anesthesia per the anesthesia staff. She was then transferred to the prone position all pressure points were well-padded. We confirmed that we're able to achieve proper visualization of the fracture under fluoroscopy. The arm was then prepped and draped in the usual standard manner with ChloraPrep. I made a posterior approach to the humerus sharply incising through the skin then utilizing Bovie electrocautery to achieve hemostasis. I approached the humerus through a triceps mobilization approach developing the lateral window. I identified and mobilized the radial nerve. A Ghazala drain was placed around the radial nerve to help in protection of this. I then mobilized the triceps and dissected down to the fracture. I provisionally reduced and held in place with a reduction clamp. I then placed a 3.5 mm lag screw from a posterior to anterior or direction. I placed a 2.4 mm lag screw from a posterior to anterior direction. I then used a Synthes 10 hole posterior lateral locking plate. I placed a nonlocking screw proximally and another nonlocking screw distally. I confirmed the reduction on AP and lateral fluoroscopy views reduction on AP and lateral fluoroscopy views. I then placed appropriate locking screws proximally and distally to the fracture. I also placed 2 lag screws through the plate. I thoroughly irrigated the wound. Deep tissues were anesthetized with Marcaine. The subcutaneous tissue was closed with interrupted 2-0 Vicryl suture. The skin was closed with jim. A sterile dressing was applied. A posterior splint was placed. A sling was placed. All needle and sponge counts were correct at the end of the procedure. The patient was transferred to the PACU in stable condition without apparent complication. The PA-C was necessary for assistance with procedure for assistance in positioning, prepping, draping, retraction and closure. I attest to the content of the Intraoperative Record and any orders documented therein. Any exceptions are noted below.
--- NOTE | 2017-11-10 15:46 | DIAGNOSTIC IMAGING REPORT ---
R HUMERUS MIN 2 VIEW ROUTINE CLINICAL HISTORY: RT ORIF HUMERUS fracture COMPARISON: 11/04/2017 DISCUSSION: Image intensifier was utilized for open reduction internal fixation of a humeral fracture. IMPRESSION: Image intensifier usage for open reduction internal fixation of a humeral fracture. The above report was generated using voice recognition software. It may contain grammatical, syntax or spelling errors. Electronically signed by: Davidson Gonzalez M.D. 11/10/2017 3:44 PM Dictated Date/Time: 11/10/2017 3:44 PM
[2017-11-10] MEDS ORDERED: SUMATRIPTAN SUCCINATE 50 MG TAB PO PRN (16:15)
[2017-11-10] MEDS ORDERED: ZOLPIDEM TARTRATE 5 MG TAB PO PRN (16:15)
[2017-11-10] MEDS ORDERED: FUROSEMIDE 20 MG TAB PO PRN (16:15)
[2017-11-10] MEDS ORDERED: ONDANSETRON INJ 2 MG/ML 2 ML VIAL IV PRN (16:15)
[2017-11-10] MEDS ORDERED: MAGNESIUM HYDROXIDE SUSP 30 ML UDC PO PRN (16:15)
[2017-11-10] MEDS ORDERED: ACETAMINOPHEN 325 MG TAB PO PRN (16:15)
[2017-11-10] MEDS ORDERED: ALUMINUM/MAGNESIUM SUSP 30 ML UDC PO PRN (16:15)
[2017-11-10 16:57] LABS: HEMATOCRIT 27.3 % (37-47); HEMOGLOBIN 9.3 g/dL (12.0-16.0); MEAN CELL VOLUME 94.1 fL (80-100); MEAN CORPUSCULAR HEMOGLOBIN 32.1 pg (25-34); MEAN CORPUSCULAR HGB CONC 34.1 g/dl (32-36); MEAN PLATELET VOLUME 9.1 fL (7.4-10.4); PLATELET COUNT 245 K/uL (130-400); RED CELL DISTRIBUTION WIDTH CV 14.1 % (11.5-14.5); RED CELL DISTRIBUTION WIDTH SD 48.3 fL (36.4-46.3); WHITE BLOOD COUNT 7.71 K/uL (4.8-10.8)
--- NOTE | 2017-11-10 17:11 | Anesthesiology Progress Note ---
Anesthesia Post Op Note Date & Time Nov 10, 2017 at 17:11 Vital Signs Pain Intensity: 0 Vital Signs Past 12 Hours Date Time Temp Pulse Resp B/P (MAP) Pulse Ox O2 Delivery O2 Flow Rate FiO2 11/10/17 17:05 61 17 110/60 97 Nasal Cannula 2 11/10/17 16:55 37.1 62 16 124/65 97 Nasal Cannula 2 11/10/17 16:45 61 16 119/49 97 Nasal Cannula 2 11/10/17 16:35 62 15 119/69 98 Oxymask 10 11/10/17 16:25 64 16 104/63 98 Oxymask 10 11/10/17 16:16 37.4 66 18 124/62 99 Oxymask 10 11/10/17 08:35 36.9 65 18 140/83 (102) 95 Room Air Notes Mental Status: alert / awake / arousable, participated in evaluation Pt Amnestic to Procedure: Yes Nausea / Vomiting: adequately controlled Pain: adequately controlled Airway Patency, RR, SpO2: stable & adequate BP & HR: stable & adequate Hydration State: stable & adequate Anesthetic Complications: no major complications apparent Pt awake, doing well, VSS, no complaints. Will go to telemetry unit overnight due to her cardiac history.
[2017-11-10 17:15] LABS: CALCIUM 8.5 mg/dl (8.5-10.1); CREATININE 0.61 mg/dl (0.60-1.20); POTASSIUM 3.9 mmol/L (3.5-5.1)
[2017-11-10] MEDS: DOCUSATE SODIUM 100 MG CAP PO SCH (19:16)
[2017-11-10] MEDS: FERROUS SULFATE 325 MG TAB PO SCH (19:16)
[2017-11-10] MEDS: SODIUM CHLORIDE 0.9% 1000ML 1,000 ML IV SCH (19:17)
[2017-11-10] MEDS: CEFAZOLIN IV 1,000 MG in SYRINGE 0 ML IV SCH (21:27)
[2017-11-10] MEDS: OXYCODONE/ACETAMINOPHEN 5-325 TAB PO PRN (23:24)
[2017-11-11] VITALS (15 sets, daily range): BP systolic 90–126; BP diastolic 47–78; PULSE 74–122; TEMP 36.3–37.8; O2SAT 91–98
[2017-11-11] MEDS: TRAMADOL HCL 50 MG TAB PO PRN ×2 (01:23→08:36)
[2017-11-11] MEDS: SODIUM CHLORIDE 0.9% 1000ML 1,000 ML IV SCH (02:56)
[2017-11-11] MEDS: METOPROLOL SUCC 25MG EXT REL TAB PO SCH (04:02)
[2017-11-11] MEDS: OXYCODONE/ACETAMINOPHEN 5-325 TAB PO PRN ×2 (05:33→20:13)
[2017-11-11] MEDS: CEFAZOLIN IV 1,000 MG in SYRINGE 0 ML IV SCH (05:36)
[2017-11-11] MEDS: LEVOTHYROXINE 75 MCG TAB PO SCH (05:38)
[2017-11-11 06:19] LABS: HEMATOCRIT 28.6 % (37-47); HEMOGLOBIN 9.4 g/dL (12.0-16.0); MEAN CELL VOLUME 94.4 fL (80-100); MEAN CORPUSCULAR HGB CONC 32.9 g/dl (32-36); MEAN PLATELET VOLUME 8.8 fL (7.4-10.4); PLATELET COUNT 262 K/uL (130-400); RED CELL DISTRIBUTION WIDTH CV 14.2 % (11.5-14.5); RED CELL DISTRIBUTION WIDTH SD 48.9 fL (36.4-46.3); WHITE BLOOD COUNT 10.73 K/uL (4.8-10.8)
[2017-11-11 06:55] LABS: ALBUMIN 2.7 gm/dl (3.4-5.0); CREATININE 0.64 mg/dl (0.60-1.20); POTASSIUM 3.8 mmol/L (3.5-5.1)
[2017-11-11 06:58] LABS: TOTAL PROTEIN 5.8 gm/dl (6.4-8.2)
--- NOTE | 2017-11-11 08:16 | Anesthesiology Progress Note ---
Anesthesia Post Op Note Date & Time Nov 11, 2017 at 08:15 Vital Signs Pain Intensity: 8.0 Vital Signs Past 12 Hours Date Time Temp Pulse Resp B/P (MAP) Pulse Ox O2 Delivery O2 Flow Rate FiO2 11/11/17 07:40 36.3 74 16 126/78 (94) 97 Room Air 11/11/17 05:33 109/72 (84) 11/11/17 04:05 109/67 (81) 11/11/17 04:00 91 11/11/17 03:42 36.8 122 18 94/57 (69) 91 11/11/17 00:03 37.8 113 18 124/69 (87) 97 11/11/17 00:01 98 11/10/17 22:00 36.7 77 18 129/74 (92) 98 Nasal Cannula 2.0 11/10/17 21:00 36.7 66 18 129/63 (85) 98 Nasal Cannula 2.0 11/10/17 20:55 36.8 63 16 130/60 (83) 99 Nasal Cannula 2.0 Notes pt resting comfortably in bed. On room air. unable to fully arouse patient due to her sleeping. in no acute distress.
[2017-11-11] MEDS: CYANOCOBALAMIN 500 MCG TAB (VIT B-12) PO SCH (08:27)
[2017-11-11] MEDS: FERROUS SULFATE 325 MG TAB PO SCH ×3 (08:28→16:23)
[2017-11-11] MEDS: SERTRALINE HCL 100 MG TAB PO SCH (08:28)
[2017-11-11] MEDS: CHOLECALCIFEROL 1000 INTER.UNIT TAB PO SCH (08:28)
[2017-11-11] MEDS: ASPIRIN 81 MG ECTAB PO SCH (08:28)
[2017-11-11] MEDS: PANTOprazole SOD 40 MG TAB PO SCH (08:28)
[2017-11-11] MEDS: DOCUSATE SODIUM 100 MG CAP PO SCH ×2 (08:29→20:14)
[2017-11-11] MEDS ORDERED: METOPROLOL SUCC 25MG EXT REL TAB PO SCH (09:00)
--- NOTE | 2017-11-11 09:14 | Medical Consult ---
Consultation Date of Consultation: Nov 11, 2017. Attending Physician: Wang Zamora M.D. Reason for Consultation: Medical management History of Present Illness Patient is an 87 y/o female, with PMHx of paroxysmal a.fib, HLD, hypothyroidism , anxiety, depression, and GERD, with R humerus fracture s/p R ORIF by Dr. Zamora on 11/10. Hospitalist team was consulted for medical management. She is feeling well this AM. Eating and drinking OK. Pain is well controlled- currently 010. +flatus postop, no BM- last BM yesterday AM. h/o a.fib- not on anticoagulation. 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 Patient denies any fever, chills , sweats, lightheadedness, dizziness, vision changes, CP, palpitations, edema, SOB, wheezing, cough, abdominal pain, nausea, vomiting, diarrhea, urinary symptoms, melena, numbness/tingling, weakness, muscle/joint pain, anxiety/ depression, active bleeding, or new skin discoloration/changes. Past Medical/Surgical History Medical Problems: paroxysmal a.fib HLD hypothyroidism anxiety depression GERD Past surgical history: appendectomy hysterectomy back surgery knee replacement Family History Patient reports no known family medical history. Social History Smoking Status: Never Smoker Alcohol Use: none Marital Status: Occupation Status: retired Allergies Coded Allergies: Prednisone (Verified Adverse Reaction, Mild, SEVERE EYE LID DROPPING, 11/10) Home Medications Reported Home Medications Medications Dose Route/Sig Max Daily Dose Days Date Category [Omeprazole] 1 Tab PO DAILY 11/10/17 Reported Roxicodone Ir (Oxycodone HCl) 5 Mg Tab 5 Mg PO Q4H PRN 11/08/17 Reported Vitamin D3 (Cholecalciferol) 2,000 Unit Cap 1 Cap PO DAILY 90 11/08/17 Reported Aspirin Ec (Aspirin) 81 Mg Tab 81 Mg PO QAM 11/08/17 Reported Vitamin B12 (Cyanocobalamin) 1,000 Mcg Tab 1,000 Mcg PO DAILY 11/06/17 Reported Ultram (Tramadol HCl) 50 Mg Tab 50 Mg PO Q4 PRN 11/06/17 Reported Zoloft (Sertraline HCl) 100 Mg Tab 100 Mg PO DAILY 11/06/17 Reported Lasix (Furosemide) 20 Mg Tab 20 Mg PO DAILY PRN 11/06/17 Reported Toprol-Xl (Metoprolol Succinate) 25 Mg Tabcr 25 Mg PO DAILY 11/06/17 Reported Synthroid (Levothyroxine Sodium) 75 Mcg Tab 75 Mcg PO DAILY 11/06/17 Reported Imitrex (Sumatriptan Succinate) 100 Mg Tab 50 Mg PO PRN 07/29/11 Reported Current Inpatient Medications Current Inpatient Medications Medications (Trade) Dose Ordered Sig/Katie Route Start Time Stop Time Status Last Admin Dose Admin Oxycodone/ Acetaminophen (Percocet 5-325mg Tab) `1-2 TABS FOR PAIN `1 TAB... Q4H PRN PO 11/10/17 16:15 11/24/17 16:14 11/11/17 05:33 2 TAB Acetaminophen (Tylenol Tab) 650 mg Q6H PRN PO 11/10/17 16:15 12/10/17 16:14 Diphenhydramine HCl (Benadryl Cap) 25 mg Q8 PRN PO 11/10/17 16:15 12/10/17 16:14 Zolpidem Tartrate (Ambien Tab) 5 mg HSZ PRN PO 11/10/17 16:15 12/10/17 16:14 Ondansetron HCl (Zofran Inj) 4 mg Q6H PRN IV 11/10/17 16:15 12/10/17 16:14 Ferrous Sulfate (Feosol Tab) 325 mg TIDM PO 11/10/17 19:00 12/10/17 18:59 11/10/17 19:16 325 MG Al Hydroxide/Mg Hydroxide (Maalox Susp) 30 ml Q6H PRN PO 11/10/17 16:15 12/10/17 16:14 Docusate Sodium (coLACE CAP) 100 mg BID PO 11/10/17 21:00 12/10/17 20:59 11/10/17 19:16 100 MG Magnesium Hydroxide (Milk Of Magnesia Susp) 30 ml Q6H PRN PO 11/10/17 16:15 12/10/17 16:14 Sodium Chloride 1,000 ml @ 100 mls/hr Q10H IV 11/10/17 16:15 12/10/17 16:14 11/11/17 02:56 100 MLS/HR Aspirin (Ecotrin Tab) 81 mg QAM PO 11/11/17 09:00 12/11/17 08:59 Furosemide (Lasix Tab) 20 mg DAILY PRN PO 11/10/17 16:15 12/10/17 16:14 Levothyroxine Sodium (Synthroid Tab) 75 mcg DAILYBB PO 11/11/17 06:00 12/11/17 05:59 11/11/17 05:38 75 MCG Sertraline HCl (Zoloft Tab) 100 mg DAILY PO 11/11/17 09:00 12/11/17 08:59 Sumatriptan Succinate (Imitrex Tab) 50 mg DAILY PRN PO 11/10/17 16:15 12/10/17 16:14 Tramadol HCl (Ultram Tab) 50 mg Q4 PRN PO 11/10/17 16:15 12/10/17 16:14 11/11/17 01:23 50 MG Cholecalciferol (Vitamin D Tab) 2,000 inter.unit DAILY PO 11/11/17 09:00 12/11/17 08:59 Cyanocobalamin (Vitamin B-12 Tab) 1,000 mcg QAM PO 11/11/17 09:00 12/11/17 08:59 Pantoprazole Sodium (Protonix Tab) 40 mg DAILY PO 11/11/17 09:00 12/11/17 08:59 Metoprolol Succinate (Toprol Xl Tab) 25 mg DAILY PO 11/11/17 04:00 12/11/17 08:59 11/11/17 04:02 25 MG Physical Exam Date Time Temp Pulse Resp B/P (MAP) Pulse Ox O2 Delivery O2 Flow Rate FiO2 11/11/17 07:40 36.3 74 16 126/78 (94) 97 Room Air 11/11/17 05:33 109/72 (84) 11/11/17 04:05 109/67 (81) 11/11/17 04:00 91 11/11/17 03:42 36.8 122 18 94/57 (69) 91 11/11/17 00:03 37.8 113 18 124/69 (87) 97 11/11/17 00:01 98 11/10/17 22:00 36.7 77 18 129/74 (92) 98 Nasal Cannula 2.0 11/10/17 21:00 36.7 66 18 129/63 (85) 98 Nasal Cannula 2.0 11/10/17 20:55 36.8 63 16 130/60 (83) 99 Nasal Cannula 2.0 11/10/17 20:00 37.0 66 18 118/72 (87) 100 Nasal Cannula 2.0 11/10/17 20:00 98 Nasal Cannula 2.0 11/10/17 19:30 36.8 65 20 130/59 (82) 98 Nasal Cannula 2.0 11/10/17 19:15 36.8 63 20 124/60 (81) 98 Nasal Cannula 2.0 11/10/17 19:07 36.8 63 18 130/60 (83) 99 Nasal Cannula 2.0 11/10/17 18:58 36.6 66 18 136/92 (107) 95 Nasal Cannula 2.0 11/10/17 18:20 39.6 66 16 130/59 98 Nasal Cannula 2.0 11/10/17 18:16 97 Nasal Cannula 2.0 11/10/17 18:00 64 19 141/60 98 Nasal Cannula 2 11/10/17 17:45 64 18 134/61 98 Nasal Cannula 2 11/10/17 17:30 64 17 95/72 98 Nasal Cannula 2 11/10/17 17:15 64 16 137/62 100 Nasal Cannula 2 11/10/17 17:05 61 17 110/60 97 Nasal Cannula 2 11/10/17 16:55 37.1 62 16 124/65 97 Nasal Cannula 2 11/10/17 16:45 61 16 119/49 97 Nasal Cannula 2 11/10/17 16:35 62 15 119/69 98 Oxymask 10 11/10/17 16:25 64 16 104/63 98 Oxymask 10 11/10/17 16:16 37.4 66 18 124/62 99 Oxymask 10 11/10/17 08:35 36.9 65 18 140/83 (102) 95 Room Air General Appearance: no apparent distress Head: normocephalic, atraumatic Eyes: normal inspection, PERRL ENT: hearing grossly normal Neck: supple, no JVD Respiratory/Chest: lungs clear, no respiratory distress, no accessory muscle use Cardiovascular: + systolic murmur, + irregularly irregular (rate controlled ) Abdomen/GI: normal bowel sounds, non tender, soft Extremities/Musculoskelatal: no calf tenderness, + pedal edema (non-pitting edema to BLE), + swelling (non-pitting edema to RUE w/ discoloration- no motor/ sensory deficits), + pertinent finding (R arm in sling w/ ice pack; BLE in TEDs/ SCDs ) Neurologic/Psych: alert, normal mood/affect, oriented x 3 Skin: normal color, warm/dry, no rash Laboratory Results Last 24 Hours Test 11/10/17 08:24 11/10/17 16:37 11/11/17 06:02 White Blood Count 7.05 K/uL 7.71 K/uL 10.73 K/uL Red Blood Count 3.29 M/uL 2.90 M/uL 3.03 M/uL Hemoglobin 10.1 g/dL 9.3 g/dL 9.4 g/dL Hematocrit 31.2 % 27.3 % 28.6 % Mean Corpuscular Volume 94.8 fL 94.1 fL 94.4 fL Mean Corpuscular Hemoglobin 30.7 pg 32.1 pg 31.0 pg Mean Corpuscular Hemoglobin Concent 32.4 g/dl 34.1 g/dl 32.9 g/dl RDW Standard Deviation 48.7 fL 48.3 fL 48.9 fL RDW Coefficient of Variation 14.1 % 14.1 % 14.2 % Platelet Count 258 K/uL 245 K/uL 262 K/uL Mean Platelet Volume 8.7 fL 9.1 fL 8.8 fL Sodium Level 140 mmol/L 141 mmol/L 139 mmol/L Potassium Level 4.1 mmol/L 3.9 mmol/L 3.8 mmol/L Chloride Level 108 mmol/L 110 mmol/L 108 mmol/L Carbon Dioxide Level 26 mmol/L 24 mmol/L 24 mmol/L Anion Gap 6.0 mmol/L 7.0 mmol/L 7.0 mmol/L Blood Urea Nitrogen 22 mg/dl 20 mg/dl 15 mg/dl Creatinine 0.73 mg/dl 0.61 mg/dl 0.64 mg/dl Est Creatinine Clear Calc Drug Dose 43.2 ml/min 51.7 ml/min 49.3 ml/min Estimated GFR () 84.6 93.2 91.7 Estimated GFR (Non- 73.0 80.4 79.1 BUN/Creatinine Ratio 30.8 32.0 22.7 Random Glucose 94 mg/dl 105 mg/dl 109 mg/dl Calcium Level 8.7 mg/dl 8.5 mg/dl 8.0 mg/dl Prothrombin Time 10.7 SECONDS 10.8 SECONDS Prothromb Time International Ratio 1.0 1.0 Total Bilirubin 0.6 mg/dl Aspartate Amino Transf (AST/SGOT) 33 U/L Alanine Aminotransferase (ALT/SGPT) 20 U/L Alkaline Phosphatase 58 U/L Total Protein 5.8 gm/dl Albumin 2.7 gm/dl Globulin 3.1 gm/dl Albumin/Globulin Ratio 0.9 Assessment & Plan Patient is an 87 y/o female, with PMHx of paroxysmal a.fib, HLD, hypothyroidism , anxiety, depression, and GERD, with R humerus fracture s/p R ORIF by Dr. Zamora on 11/10. Hospitalist team was consulted for medical management. R humerus fracture s/p R ORIF by Dr. Zamora on 11/10: - Surgical management, pain management, PT/OT, and DVT prophylaxis as per orthopedics - Continue Vitamin D supplement - Bowel regimen ordered - Encourage incentive spirometer - Postop CBC and PRP- STABLE Paroxysmal a.fib, HLD, peripheral edema: - Tele for cardiac monitoring postop- a.fib w/ rates in low-mid 100s - Check TSH- last TSH in 12/2016 WNL - Continue Metoprolol w/ hold parameters, ASA, Lasix PRN, Lipitor - IV Metoprolol PRN for HR >120 - No anticoagulation- per outpatient records, always in NSR. Continue to follow and hopefully converts back to NSR. If not, consider cardiology consult and anticoagulation - ECHO 11/10/2017- preserved EF, no diastolic dysfunction, no wall abnormalities , mild to moderate aortic stenosis w/ trace regurgitation, mild mitral regurgitation - Patient does NOT follow w/ cardiology currently Hypothyroidism: Continue Synthroid Anxiety, depression: Continue Zoloft Migraines: Continue Imitrex PRN GERD: Protonix daily- resume Prilosec at discharge DVT prophylaxis: ASA as per surgical team Code status: LEVEL I, FULL- no prolonged measures Dispo: As per primary team
[2017-11-11] MEDS ORDERED: METOPROLOL TARTRATE 1 MG/ML VIAL IV PRN (09:15)
--- NOTE | 2017-11-11 12:24 | Orthopedic Progress Note ---
Orthopedic Progress Note Date of Service Nov 11, 2017. Subjective Post OP Day: 1 Reports: feeling well, Denies: complaints Objective N/V intact, dressing C/D/I Dressing intact, hand/fingers swollen. Moving fingers well. Sensation intact. Sling in place. Date Time Temp Pulse Resp B/P (MAP) Pulse Ox O2 Delivery O2 Flow Rate FiO2 11/11/17 12:00 95 Room Air 11/11/17 11:54 36.6 93 20 90/47 (61) 91 Room Air 11/11/17 08:00 97 Room Air 11/11/17 07:40 36.3 74 16 126/78 (94) 97 Room Air 11/11/17 05:33 109/72 (84) 11/11/17 04:05 109/67 (81) 11/11/17 04:00 91 11/11/17 03:42 36.8 122 18 94/57 (69) 91 11/11/17 00:03 37.8 113 18 124/69 (87) 97 11/11/17 00:01 98 11/10/17 22:00 36.7 77 18 129/74 (92) 98 Nasal Cannula 2.0 11/10/17 21:00 36.7 66 18 129/63 (85) 98 Nasal Cannula 2.0 11/10/17 20:55 36.8 63 16 130/60 (83) 99 Nasal Cannula 2.0 11/10/17 20:00 37.0 66 18 118/72 (87) 100 Nasal Cannula 2.0 11/10/17 20:00 98 Nasal Cannula 2.0 11/10/17 19:30 36.8 65 20 130/59 (82) 98 Nasal Cannula 2.0 11/10/17 19:15 36.8 63 20 124/60 (81) 98 Nasal Cannula 2.0 11/10/17 19:07 36.8 63 18 130/60 (83) 99 Nasal Cannula 2.0 11/10/17 18:58 36.6 66 18 136/92 (107) 95 Nasal Cannula 2.0 11/10/17 18:20 39.6 66 16 130/59 98 Nasal Cannula 2.0 11/10/17 18:16 97 Nasal Cannula 2.0 11/10/17 18:00 64 19 141/60 98 Nasal Cannula 2 11/10/17 17:45 64 18 134/61 98 Nasal Cannula 2 11/10/17 17:30 64 17 95/72 98 Nasal Cannula 2 11/10/17 17:15 64 16 137/62 100 Nasal Cannula 2 11/10/17 17:05 61 17 110/60 97 Nasal Cannula 2 11/10/17 16:55 37.1 62 16 124/65 97 Nasal Cannula 2 11/10/17 16:45 61 16 119/49 97 Nasal Cannula 2 11/10/17 16:35 62 15 119/69 98 Oxymask 10 11/10/17 16:25 64 16 104/63 98 Oxymask 10 11/10/17 16:16 37.4 66 18 124/62 99 Oxymask 10 Laboratory Results 24 Hours: Test 11/10/17 16:37 11/11/17 06:02 Hematocrit 27.3 % 28.6 % Hemoglobin 9.3 g/dL 9.4 g/dL Prothromb Time International Ratio 1.0 1.0 Prothrombin Time 10.7 SECONDS 10.8 SECONDS Assessment & Plan Assessment: POD 1 s/p ORIF right humerus May be up with PT/OT; NWB on RUE To [facility] when ok with Med Service. Discussing possibly going to [facility] when stable. Inhouse Planning Pain Management: Percocet, Ultram DVT Prophylaxis: TEDs, SCDs Discharge Planning Discharge Planning: uncertain
[2017-11-11] MEDS: ATORVASTATIN 20 MG TAB PO SCH (20:14)
[2017-11-12] VITALS (8 sets, daily range): BP systolic 94–117; BP diastolic 59–72; PULSE 63–113; TEMP 36.2–37; O2SAT 91–95
[2017-11-12] MEDS: LEVOTHYROXINE 75 MCG TAB PO SCH (05:32)
[2017-11-12 06:36] LABS: BASO % 0.2 %; BASO ABS # 0.02 K/uL (0-0.2); EOS % 0.7 %; EOS ABS # 0.07 K/uL (0-0.5); HEMATOCRIT 27.2 % (37-47); HEMOGLOBIN 9.1 g/dL (12.0-16.0); IG# 0.05 K/uL (0.00-0.02); LYMPH % 14.7 %; LYMPH ABS # 1.52 K/uL (1.2-3.4); MEAN CELL VOLUME 93.5 fL (80-100); MEAN CORPUSCULAR HEMOGLOBIN 31.3 pg (25-34); MEAN CORPUSCULAR HGB CONC 33.5 g/dl (32-36); MEAN PLATELET VOLUME 9.1 fL (7.4-10.4); MONO % 11.3 %; MONO ABS # 1.17 K/uL (0.11-0.59); NEUT % 72.6 %; NEUT ABS # 7.51 K/uL (1.4-6.5); PLATELET COUNT 280 K/uL (130-400); RED CELL DISTRIBUTION WIDTH SD 47.9 fL (36.4-46.3); WHITE BLOOD COUNT 10.34 K/uL (4.8-10.8)
[2017-11-12 07:14] LABS: CALCIUM 8.4 mg/dl (8.5-10.1); CREATININE 0.52 mg/dl (0.60-1.20); POTASSIUM 3.5 mmol/L (3.5-5.1)
[2017-11-12] MEDS: CHOLECALCIFEROL 1000 INTER.UNIT TAB PO SCH (08:30)
[2017-11-12] MEDS: SERTRALINE HCL 100 MG TAB PO SCH (08:30)
[2017-11-12] MEDS: FERROUS SULFATE 325 MG TAB PO SCH ×3 (08:30→17:16)
[2017-11-12] MEDS: METOPROLOL SUCC 25MG EXT REL TAB PO SCH (08:30)
[2017-11-12] MEDS: PANTOprazole SOD 40 MG TAB PO SCH (08:30)
[2017-11-12] MEDS: CYANOCOBALAMIN 500 MCG TAB (VIT B-12) PO SCH (08:30)
[2017-11-12] MEDS: ASPIRIN 81 MG ECTAB PO SCH (08:31)
[2017-11-12] MEDS: DOCUSATE SODIUM 100 MG CAP PO SCH ×2 (08:31→20:25)
--- NOTE | 2017-11-12 10:51 | PROGRESS NOTE ---
DATE: 11/12/2017 SUBJECTIVE: Postop day #2, status post right humerus ORIF. The patient notes appropriate amount of pain. Denies any significant numbness. OBJECTIVE: Dressing is clean, dry, and intact. She has intact flexion and extension of the wrist and the digits. She has moderate to significant swelling in the hand. Sling is in place. ASSESSMENT: Postop day #2, status post ORIF right humerus fracture. PLAN: At this point in time, continue nonweightbearing in the right upper extremity. Continue PT/OT. Continue treatment as per medical service. Continue TEDs and SCDs for DVT prophylaxis and Percocet and Ultram for pain control. Appreciate hospitalist input.
[2017-11-12] MEDS ORDERED: HEPARIN IV LOW DOSE NO BOLUS SCH (11:32)
[2017-11-12 11:53] LABS: HEMATOCRIT 29.3 % (37-47); HEMOGLOBIN 9.8 g/dL (12.0-16.0); MEAN CELL VOLUME 93.9 fL (80-100); MEAN CORPUSCULAR HEMOGLOBIN 31.4 pg (25-34); PLATELET COUNT 288 K/uL (130-400); RED CELL DISTRIBUTION WIDTH CV 14.1 % (11.5-14.5); RED CELL DISTRIBUTION WIDTH SD 48.2 fL (36.4-46.3); WHITE BLOOD COUNT 10.57 K/uL (4.8-10.8)
[2017-11-12 12:01] LABS: INR 1.1 (0.9-1.1); PTT PATIENT 28.9 SECONDS (21.0-31.0)
[2017-11-12 12:07] LABS: MEAN CORPUSCULAR HGB CONC 33.4 g/dl (32-36)
[2017-11-12] MEDS: OXYCODONE/ACETAMINOPHEN 5-325 TAB PO PRN ×2 (13:10→20:25)
[2017-11-12] MEDS: HEPARIN 25,000 UNIT/500ML D5W 500 ML IV SCH (13:15)
--- NOTE | 2017-11-12 15:55 | Progress Note ---
Subjective Date of Service: Nov 12, 2017. Subjective Pt evaluation today including: conversation w/ patient, conversation w/ family , physical exam, lab review, review of inpatient medication list Pain: right shoulder, moderate PO Intake: adequate Voiding: no voiding problems patient still in afib, discussed need for anticoagulation, she agrees okayed heparin with orthopedics she is doing well Problem List Medical Problems: (1) Arm fracture Status: Acute (2) Arm pain, right Status: Acute (3) Humerus fracture Status: Acute Review of Systems Constitutional: + weakness Musculoskeletal: + joint pain (right shoulder) All Other Systems: Reviewed and Negative Medications Current Inpatient Medications Medications (Trade) Dose Ordered Sig/Katie Route Start Time Stop Time Status Last Admin Dose Admin Oxycodone/ Acetaminophen (Percocet 5-325mg Tab) `1-2 TABS FOR PAIN `1 TAB... Q4H PRN PO 11/10/17 16:15 11/24/17 16:14 11/12/17 13:10 2 TAB Acetaminophen (Tylenol Tab) 650 mg Q6H PRN PO 11/10/17 16:15 12/10/17 16:14 Diphenhydramine HCl (Benadryl Cap) 25 mg Q8 PRN PO 11/10/17 16:15 12/10/17 16:14 Zolpidem Tartrate (Ambien Tab) 5 mg HSZ PRN PO 11/10/17 16:15 12/10/17 16:14 Ondansetron HCl (Zofran Inj) 4 mg Q6H PRN IV 11/10/17 16:15 12/10/17 16:14 Ferrous Sulfate (Feosol Tab) 325 mg TIDM PO 11/10/17 19:00 12/10/17 18:59 11/12/17 12:15 325 MG Al Hydroxide/Mg Hydroxide (Maalox Susp) 30 ml Q6H PRN PO 11/10/17 16:15 12/10/17 16:14 Docusate Sodium (coLACE CAP) 100 mg BID PO 11/10/17 21:00 12/10/17 20:59 11/12/17 08:31 100 MG Magnesium Hydroxide (Milk Of Magnesia Susp) 30 ml Q6H PRN PO 11/10/17 16:15 12/10/17 16:14 Aspirin (Ecotrin Tab) 81 mg QAM PO 11/11/17 09:00 12/11/17 08:59 11/12/17 08:31 81 MG Furosemide (Lasix Tab) 20 mg DAILY PRN PO 11/10/17 16:15 12/10/17 16:14 Levothyroxine Sodium (Synthroid Tab) 75 mcg DAILYBB PO 11/11/17 06:00 12/11/17 05:59 11/12/17 05:32 75 MCG Sertraline HCl (Zoloft Tab) 100 mg DAILY PO 11/11/17 09:00 12/11/17 08:59 11/12/17 08:30 100 MG Sumatriptan Succinate (Imitrex Tab) 50 mg DAILY PRN PO 11/10/17 16:15 12/10/17 16:14 Tramadol HCl (Ultram Tab) 50 mg Q4 PRN PO 11/10/17 16:15 12/10/17 16:14 11/11/17 08:36 50 MG Cholecalciferol (Vitamin D Tab) 2,000 inter.unit DAILY PO 11/11/17 09:00 12/11/17 08:59 11/12/17 08:30 2,000 INTER.UNIT Cyanocobalamin (Vitamin B-12 Tab) 1,000 mcg QAM PO 11/11/17 09:00 12/11/17 08:59 11/12/17 08:30 1,000 MCG Pantoprazole Sodium (Protonix Tab) 40 mg DAILY PO 11/11/17 09:00 12/11/17 08:59 11/12/17 08:30 40 MG Metoprolol Succinate (Toprol Xl Tab) 25 mg DAILY PO 11/11/17 04:00 12/11/17 08:59 11/12/17 08:30 25 MG Atorvastatin Calcium (Lipitor Tab) 20 mg HS PO 11/11/17 21:00 12/11/17 20:59 11/11/17 20:14 20 MG Metoprolol Tartrate (Lopressor Iv) 5 mg Q6 PRN IV 11/11/17 09:15 12/11/17 09:14 Heparin Sodium/ Dextrose 500 ml @ 14 mls/hr Q24H IV 11/12/17 13:00 12/12/17 12:59 11/12/17 13:15 14 MLS/HR Objective Vital Signs Date Time Temp Pulse Resp B/P (MAP) Pulse Ox O2 Delivery O2 Flow Rate FiO2 11/12/17 14:00 Room Air 11/12/17 12:00 Room Air 11/12/17 11:51 36.8 113 20 94/60 (71) 93 Room Air 11/12/17 08:00 Room Air 11/12/17 07:46 36.9 107 20 117/68 (84) 93 Room Air 11/12/17 06:30 37.0 63 16 112/72 (85) 94 Room Air 11/12/17 04:00 92 Room Air 11/12/17 00:01 92 Room Air 11/11/17 23:53 37.0 104 17 110/67 (81) 91 Room Air 11/11/17 20:00 92 Room Air 11/11/17 19:23 36.8 108 16 119/70 (86) 92 Room Air 11/11/17 16:00 95 Room Air Physical Exam General Appearance: WD/WN, no apparent distress Eyes: normal inspection, EOMI, sclerae normal ENT: normal ENT inspection, hearing grossly normal, pharynx normal Neck: supple, no adenopathy, no JVD, trachea midline Respiratory/Chest: chest non-tender, lungs clear, normal breath sounds, no respiratory distress, no accessory muscle use Cardiovascular: no edema, no gallop, no JVD, no murmur, + tachycardia, + irregularly irregular Abdomen: normal bowel sounds, non tender, soft, no organomegaly Extremities: no pedal edema, no calf tenderness, + pertinent finding (right shoulder tender, in sling, swollen) Neurologic/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, no motor/sensory deficits, alert, normal mood/affect, oriented x 3 Skin: normal color, warm/dry, no rash Laboratory Results Last 24 Hours Test 11/12/17 06:15 11/12/17 11:40 White Blood Count 10.34 K/uL 10.57 K/uL Red Blood Count 2.91 M/uL 3.12 M/uL Hemoglobin 9.1 g/dL 9.8 g/dL Hematocrit 27.2 % 29.3 % Mean Corpuscular Volume 93.5 fL 93.9 fL Mean Corpuscular Hemoglobin 31.3 pg 31.4 pg Mean Corpuscular Hemoglobin Concent 33.5 g/dl 33.4 g/dl Platelet Count 280 K/uL 288 K/uL Mean Platelet Volume 9.1 fL 9.0 fL Neutrophils (%) (Auto) 72.6 % Lymphocytes (%) (Auto) 14.7 % Monocytes (%) (Auto) 11.3 % Eosinophils (%) (Auto) 0.7 % Basophils (%) (Auto) 0.2 % Neutrophils # (Auto) 7.51 K/uL Lymphocytes # (Auto) 1.52 K/uL Monocytes # (Auto) 1.17 K/uL Eosinophils # (Auto) 0.07 K/uL Basophils # (Auto) 0.02 K/uL RDW Standard Deviation 47.9 fL 48.2 fL RDW Coefficient of Variation 14.0 % 14.1 % Immature Granulocyte % (Auto) 0.5 % Immature Granulocyte # (Auto) 0.05 K/uL Sodium Level 137 mmol/L Potassium Level 3.5 mmol/L Chloride Level 107 mmol/L Carbon Dioxide Level 23 mmol/L Anion Gap 7.0 mmol/L Blood Urea Nitrogen 13 mg/dl Creatinine 0.52 mg/dl Est Creatinine Clear Calc Drug Dose 66.6 ml/min Estimated GFR () 98.2 Estimated GFR (Non- 84.7 BUN/Creatinine Ratio 24.7 Random Glucose 108 mg/dl Calcium Level 8.4 mg/dl Thyroid Stimulating Hormone (TSH) 5.300 uIu/ml Prothrombin Time 11.2 SECONDS Prothromb Time International Ratio 1.1 Activated Partial Thromboplast Time 28.9 SECONDS Partial Thromboplastin Ratio 1.1 Assessment and Plan Patient is an 87 y/o female, with PMHx of paroxysmal a.fib, HLD, hypothyroidism , anxiety, depression, and GERD, with R humerus fracture s/p R ORIF by Dr. Zamora on 11/10. Hospitalist team was consulted for medical management. R humerus fracture s/p R ORIF by Dr. Zamora on 11/10: - Surgical management, pain management, PT/OT, and DVT prophylaxis as per orthopedics - Continue Vitamin D supplement - Bowel regimen ordered - Encourage incentive spirometer - hb 9.8 and Cr stable post op Paroxysmal a.fib, HLD, peripheral edema: - Tele for cardiac monitoring postop- a.fib w/ rates in low-mid 100s remains in atrial fibrillation intermittently, on Toprol 25mg will start heparin gtt, will need oral anticoagulation wants to follow with cardiology after discharge - Continue Metoprolol w/ hold parameters, ASA, Lasix PRN, Lipitor - IV Metoprolol PRN for HR >120 - ECHO 11/10/2017- preserved EF, no diastolic dysfunction, no wall abnormalities , mild to moderate aortic stenosis w/ trace regurgitation, mild mitral regurgitation Hypothyroidism: Continue Synthroid Anxiety, depression: Continue Zoloft Migraines: Continue Imitrex PRN GERD: Protonix daily- resume Prilosec at discharge DVT prophylaxis: ASA as per surgical team Code status: LEVEL I, FULL- no prolonged measures Dispo: As per primary team
[2017-11-12] MEDS: TRAMADOL HCL 50 MG TAB PO PRN (16:36)
[2017-11-12 19:45] LABS: PTT PATIENT 33.1 SECONDS (21.0-31.0)
[2017-11-12] MEDS: ATORVASTATIN 20 MG TAB PO SCH (20:25)
[2017-11-12] MEDS ORDERED: HEPARIN IV BOLUS 4,000 UNIT in SYRINGE 0 ML IV ONE (20:30)
[2017-11-13] VITALS (7 sets, daily range): BP systolic 92–122; BP diastolic 58–71; PULSE 81–106; TEMP 36.6–37; O2SAT 91–97
[2017-11-13] MEDS: LEVOTHYROXINE 75 MCG TAB PO SCH (06:11)
[2017-11-13] MEDS: ASPIRIN 81 MG ECTAB PO SCH (07:52)
[2017-11-13] MEDS: PANTOprazole SOD 40 MG TAB PO SCH (07:52)
[2017-11-13] MEDS: CYANOCOBALAMIN 500 MCG TAB (VIT B-12) PO SCH (07:52)
[2017-11-13] MEDS: SERTRALINE HCL 100 MG TAB PO SCH (07:53)
[2017-11-13] MEDS: OXYCODONE/ACETAMINOPHEN 5-325 TAB PO PRN (07:53)
[2017-11-13] MEDS: DOCUSATE SODIUM 100 MG CAP PO SCH ×2 (07:53→20:48)
[2017-11-13] MEDS: METOPROLOL SUCC 25MG EXT REL TAB PO SCH (07:53)
[2017-11-13] MEDS: CHOLECALCIFEROL 1000 INTER.UNIT TAB PO SCH (07:53)
[2017-11-13] MEDS: FERROUS SULFATE 325 MG TAB PO SCH ×3 (07:53→17:01)
--- NOTE | 2017-11-13 09:40 | Orthopedic Progress Note ---
Orthopedic Progress Note Date of Service Nov 13, 2017. Subjective Post OP Day: 3 Reports: feeling well, Denies: complaints Objective CMS intact Dressings removed. Wound benign. Redressed. Swelling of the hand noted. Sensation intact. Moving fingers well. Date Time Temp Pulse Resp B/P (MAP) Pulse Ox O2 Delivery O2 Flow Rate FiO2 11/13/17 08:00 Room Air 11/13/17 07:39 36.6 81 18 103/63 (76) 93 Room Air 11/13/17 04:04 36.6 106 21 92/58 (69) 91 Room Air 11/13/17 04:00 Room Air 11/13/17 00:01 Room Air 11/12/17 22:43 36.4 100 18 113/62 (79) 91 Room Air 11/12/17 20:10 37.0 78 19 100/64 (76) 95 Room Air 11/12/17 20:00 Room Air 11/12/17 16:00 Room Air 11/12/17 15:49 36.2 106 20 96/59 (71) 94 Room Air 11/12/17 14:00 Room Air 11/12/17 12:00 Room Air 11/12/17 11:51 36.8 113 20 94/60 (71) 93 Room Air Laboratory Results 24 Hours: Test 11/12/17 11:40 Hematocrit 29.3 % Hemoglobin 9.8 g/dL Prothromb Time International Ratio 1.1 Prothrombin Time 11.2 SECONDS Assessment & Plan Assessment: POD 3 s/p ORIF right humerus May be up with PT/OT; NWB on RUE Started on Heparin with plans to transition to oral anticoagulation. Planning for [facility] vs [facility] Inhouse Planning Pain Management: Percocet, Ultram DVT Prophylaxis: TEDs, SCDs Discharge Planning Discharge Planning: uncertain
[2017-11-13] MEDS: TRAMADOL HCL 50 MG TAB PO PRN (17:39)
[2017-11-13] MEDS: HEPARIN 25,000 UNIT/500ML D5W 500 ML IV SCH (20:47)
[2017-11-13] MEDS: ATORVASTATIN 20 MG TAB PO SCH (20:48)
--- NOTE | 2017-11-13 21:21 | Progress Note ---
Subjective Date of Service: Nov 13, 2017. Subjective Pt evaluation today including: conversation w/ patient, physical exam, lab review, review of inpatient medication list Pain: right shoulder PO Intake: adequate Voiding: no voiding problems patient doing well, pain is controlled, eating well, had a BM rates are well controlled on monitor with Toprol no labs today, Hb and Cr were stable yesterday Problem List Medical Problems: (1) Arm fracture Status: Acute (2) Arm pain, right Status: Acute (3) Humerus fracture Status: Acute Review of Systems Constitutional: + weakness Musculoskeletal: + joint pain (right shoulder) All Other Systems: Reviewed and Negative Medications Current Inpatient Medications Medications (Trade) Dose Ordered Sig/Katie Route Start Time Stop Time Status Last Admin Dose Admin Oxycodone/ Acetaminophen (Percocet 5-325mg Tab) `1-2 TABS FOR PAIN `1 TAB... Q4H PRN PO 11/10/17 16:15 11/24/17 16:14 11/13/17 07:53 1 TAB Acetaminophen (Tylenol Tab) 650 mg Q6H PRN PO 11/10/17 16:15 12/10/17 16:14 Diphenhydramine HCl (Benadryl Cap) 25 mg Q8 PRN PO 11/10/17 16:15 12/10/17 16:14 Zolpidem Tartrate (Ambien Tab) 5 mg HSZ PRN PO 11/10/17 16:15 12/10/17 16:14 Ondansetron HCl (Zofran Inj) 4 mg Q6H PRN IV 11/10/17 16:15 12/10/17 16:14 11/12/17 16:36 4 MG Ferrous Sulfate (Feosol Tab) 325 mg TIDM PO 11/10/17 19:00 12/10/17 18:59 11/13/17 17:01 325 MG Al Hydroxide/Mg Hydroxide (Maalox Susp) 30 ml Q6H PRN PO 11/10/17 16:15 12/10/17 16:14 Docusate Sodium (coLACE CAP) 100 mg BID PO 11/10/17 21:00 12/10/17 20:59 11/13/17 20:48 100 MG Magnesium Hydroxide (Milk Of Magnesia Susp) 30 ml Q6H PRN PO 11/10/17 16:15 12/10/17 16:14 Aspirin (Ecotrin Tab) 81 mg QAM PO 11/11/17 09:00 12/11/17 08:59 11/13/17 07:52 81 MG Furosemide (Lasix Tab) 20 mg DAILY PRN PO 11/10/17 16:15 12/10/17 16:14 Levothyroxine Sodium (Synthroid Tab) 75 mcg DAILYBB PO 11/11/17 06:00 12/11/17 05:59 11/13/17 06:11 75 MCG Sertraline HCl (Zoloft Tab) 100 mg DAILY PO 11/11/17 09:00 12/11/17 08:59 11/13/17 07:53 100 MG Sumatriptan Succinate (Imitrex Tab) 50 mg DAILY PRN PO 11/10/17 16:15 12/10/17 16:14 Tramadol HCl (Ultram Tab) 50 mg Q4 PRN PO 11/10/17 16:15 12/10/17 16:14 11/13/17 17:39 50 MG Cholecalciferol (Vitamin D Tab) 2,000 inter.unit DAILY PO 11/11/17 09:00 12/11/17 08:59 11/13/17 07:53 2,000 INTER.UNIT Cyanocobalamin (Vitamin B-12 Tab) 1,000 mcg QAM PO 11/11/17 09:00 12/11/17 08:59 11/13/17 07:52 1,000 MCG Pantoprazole Sodium (Protonix Tab) 40 mg DAILY PO 11/11/17 09:00 12/11/17 08:59 11/13/17 07:52 40 MG Metoprolol Succinate (Toprol Xl Tab) 25 mg DAILY PO 11/11/17 04:00 12/11/17 08:59 11/13/17 07:53 25 MG Atorvastatin Calcium (Lipitor Tab) 20 mg HS PO 11/11/17 21:00 12/11/17 20:59 11/13/17 20:48 20 MG Metoprolol Tartrate (Lopressor Iv) 5 mg Q6 PRN IV 11/11/17 09:15 12/11/17 09:14 Heparin Sodium/ Dextrose 500 ml @ 16 mls/hr Q24H IV 11/12/17 13:00 12/12/17 12:59 11/13/17 20:47 16 MLS/HR Objective Vital Signs Date Time Temp Pulse Resp B/P (MAP) Pulse Ox O2 Delivery O2 Flow Rate FiO2 11/13/17 19:45 37.0 92 18 122/71 (88) 97 11/13/17 16:00 Room Air 11/13/17 15:00 36.7 96 18 102/68 (79) 93 Nasal Cannula 11/13/17 12:11 36.8 104 18 96/61 (73) 93 Room Air 11/13/17 12:00 Room Air 11/13/17 08:00 Room Air 11/13/17 07:39 36.6 81 18 103/63 (76) 93 Room Air 11/13/17 04:04 36.6 106 21 92/58 (69) 91 Room Air 11/13/17 04:00 Room Air 11/13/17 00:01 Room Air 11/12/17 22:43 36.4 100 18 113/62 (79) 91 Room Air Physical Exam General Appearance: WD/WN, no apparent distress Eyes: normal inspection, EOMI, sclerae normal ENT: normal ENT inspection, hearing grossly normal, pharynx normal Neck: supple, no adenopathy, no JVD, trachea midline Respiratory/Chest: chest non-tender, lungs clear, normal breath sounds, no respiratory distress, no accessory muscle use Cardiovascular: no edema, no gallop, no JVD, no murmur, + irregularly irregular Abdomen: normal bowel sounds, non tender, soft, no organomegaly Extremities: normal range of motion, non-tender, normal inspection, no pedal edema, no calf tenderness, normal capillary refill, pelvis stable Neurologic/Psychiatric: television journalist II-XII nml as tested, no motor/sensory deficits, alert, normal mood/affect, oriented x 3 Skin: normal color, warm/dry, no rash Laboratory Results Last 24 Hours Test 11/13/17 01:19 Activated Partial Thromboplast Time 61.0 SECONDS Partial Thromboplastin Ratio 2.3 Assessment and Plan Patient is an 87 y/o female, with PMHx of paroxysmal a.fib, HLD, hypothyroidism , anxiety, depression, and GERD, with R humerus fracture s/p R ORIF by Dr. Zamora on 11/10. Hospitalist team was consulted for medical management. R humerus fracture s/p R ORIF by Dr. Zamora on 11/10: - Surgical management, pain management, PT/OT, and DVT prophylaxis as per orthopedics - Continue Vitamin D supplement - hb 9.8 and Cr stable post op on 11/12 Paroxysmal a.fib, hyperlipidemia - atrial fibrillation post op, rates from 80-100 on Toprol 25mg which is home medications will start heparin gtt, will need oral anticoagulation, check with ortho tomorrow, would recommend Eliquis 2.5mg BID (age and weight) wants to follow with cardiology after discharge, PCP can refer - Continue Metoprolol w/ hold parameters, ASA, Lasix PRN, Lipitor - ECHO 11/10/2017- preserved EF, no diastolic dysfunction, no wall abnormalities , mild to moderate aortic stenosis w/ trace regurgitation, mild mitral regurgitation Hypothyroidism: Continue Synthroid Anxiety, depression: Continue Zoloft Migraines: Continue Imitrex PRN GERD: Protonix daily- resume Prilosec at discharge DVT prophylaxis: ASA as per surgical team Code status: LEVEL I, FULL- no prolonged measures Dispo: As per primary team, would be stable from medical perspective once on Eliquis
[2017-11-14] VITALS (8 sets, daily range): BP systolic 103–129; BP diastolic 54–82; PULSE 63–108; TEMP 36–37.4; O2SAT 93–95
[2017-11-14 05:00] LABS: PTT PATIENT 34.5 SECONDS (21.0-31.0)
[2017-11-14] MEDS ORDERED: HEPARIN IV BOLUS 4,000 UNIT in SYRINGE 0 ML IV ONE (05:30)
[2017-11-14] MEDS: LEVOTHYROXINE 75 MCG TAB PO SCH (05:43)
[2017-11-14] MEDS: CYANOCOBALAMIN 500 MCG TAB (VIT B-12) PO SCH (08:51)
[2017-11-14] MEDS: OXYCODONE/ACETAMINOPHEN 5-325 TAB PO PRN (08:51)
[2017-11-14] MEDS: PANTOprazole SOD 40 MG TAB PO SCH (08:51)
[2017-11-14] MEDS: SERTRALINE HCL 100 MG TAB PO SCH (08:51)
[2017-11-14] MEDS: ASPIRIN 81 MG ECTAB PO SCH (08:51)
[2017-11-14] MEDS: FERROUS SULFATE 325 MG TAB PO SCH ×3 (08:52→17:52)
[2017-11-14] MEDS: DOCUSATE SODIUM 100 MG CAP PO SCH ×2 (08:52→20:35)
[2017-11-14] MEDS: CHOLECALCIFEROL 1000 INTER.UNIT TAB PO SCH (08:52)
[2017-11-14] MEDS: METOPROLOL SUCC 25MG EXT REL TAB PO SCH (08:52)
--- NOTE | 2017-11-14 11:21 | Orthopedic Progress Note ---
Orthopedic Progress Note Date of Service Nov 14, 2017. Subjective Post OP Day: 4 Reports: feeling well, Denies: chest pain, SOB, nausea / vomiting, light headedness, calf pain Objective calves soft nontender, N/V intact, splint C/D/I, capillary refill less than 2 sec., A&O x3 MODERATE ECCHYMOSIS NOTED. HAND SWOLLEN, ECCHYMOSIS IN THE FINGERS. DENIES NUMBNESS. Date Time Temp Pulse Resp B/P (MAP) Pulse Ox O2 Delivery O2 Flow Rate FiO2 11/14/17 10:55 36.9 97 18 110/72 (85) 94 Room Air 11/14/17 08:00 Room Air 11/14/17 07:15 36.2 91 18 129/82 (98) 95 Room Air 11/14/17 04:02 36.0 93 18 114/77 (89) 93 11/14/17 04:00 93 Room Air 11/14/17 00:01 37.4 108 18 120/74 (89) 94 11/14/17 00:01 93 Room Air 11/13/17 20:00 97 Room Air 11/13/17 19:45 37.0 92 18 122/71 (88) 97 11/13/17 16:00 Room Air 11/13/17 15:00 36.7 96 18 102/68 (79) 93 Nasal Cannula 11/13/17 12:11 36.8 104 18 96/61 (73) 93 Room Air 11/13/17 12:00 Room Air Assessment & Plan Assessment: POD 4 s/p ORIF right humerus May be up with PT/OT; NWB on RU MEDICAL MGT Started on Heparin with plans to transition to oral anticoagulation. PLAN TO START ELIQUIS TODAY Planning for [facility] ([facility] vs [facility]. Inhouse Planning Pain Management: Percocet, Ultram DVT Prophylaxis: TEDs, SCDs Discharge Planning Discharge Planning: uncertain
--- NOTE | 2017-11-14 11:24 | Discharge Instructions ---
Discharge Instructions Date of Service Nov 14, 2017. Admission Reason for Admission: Right Humeral Fracture Discharge Discharge Diagnosis / Problem: SP ORIF RIGHT HUMERUS Discharge Goals Goal(s): Decrease discomfort, Improve function, Increase independence Activity Recommendations Activity Level: Assistance Required Therapies: Physical Therapy, Weight Bearing Status (NWB RUE), Occupational Therapy . Additional Information Patient informed of condition: Yes Advance Directives: Yes DNR: No Level of Care: Acute Rehab Communicable Disease: No Prognosis: Stable Instructions / Follow-Up Instructions / Follow-Up ACTIVITY RECOMMENDATIONS: SELF CARE INSTRUCTIONS AFTER TOTAL SHOULDER ARTHROPLASTY A. You may do daily exercises as taught in physical therapy while in hospital. No lifting with the operative arm. Please schedule your outpatient physical therapy appointment to begin within 2-3 days after leaving the hospital. Specific restrictions will be written on your physical therapy prescription that is provided to you. B. You are to wear your sling/immobilizer at all times EXCEPT when performing your daily exercises, participating in physical therapy and for hygiene purposes. C. KEEP SPLINT CLEAN AND DRY UNTIL FOLLOW UP APPT D. You may use ice as needed to operative shoulder. SPECIAL CARE INSTRUCTIONS: MEDICATION INSTRUCTIONS: RESUME ELIQUIS INSTRUCTED. WILL NEED CARDIO FOLLOW UP. SEE PCP FOR REFERRAL. VERY IMPORTANT TO READ AND REVIEW A. There are a few signs you need to watch for after you are home. Call [facility] at [phone] if you experience any of the followin. Increased severe shoulder pain. Some pain is expected especially when you exercise. 2. Increased swelling in you shoulder or arm; pain or swelling in either upper extremity. 3. Any fluid drainage from the incision. 4. Shortness of breath or chest pain. B. Please call [facility] at [phone] if you have any questions or concerns about your operation or recovery. C. Call your physician if: 1. Temperature is greater than 101 degrees (F). 2. Pain is not relieved by prescribed pain medications. 3. Increase drainage or redness from incision. 4. Unanswered questions or concerns. FOLLOW UP VISIT: Please call [facility] at [phone] to schedule a follow up appointment with Dr. VALENZUELA or his PA in 12-14 days from your surgery date. Current Hospital Diet Patient's current hospital diet: Regular Diet Discharge Diet Recommended Diet: Regular Diet Procedures Procedures Performed: Right Humerus Open Reduction Internal Fixation Pending Studies Studies pending at discharge: no Medical Emergencies . Who to Call and When: Medical Emergencies: If at any time you feel your situation is an emergency, please call 911 immediately. . Non-Emergent Contact Non-Emergency issues call your: Primary Care Provider, Surgeon . . "Provider Documentation" section prepared by Julianna Guerrier. . Core Measure Problem Core Measures: None
[2017-11-14] MEDS ORDERED: APIXABAN 2.5 MG TAB PO ONE (12:06)
[2017-11-14] MEDS ORDERED: ELQ25 PO (12:09)
[2017-11-14 12:13] LABS: PTT PATIENT 44.1 SECONDS (21.0-31.0)
--- NOTE | 2017-11-14 12:13 | Hospitalist Progress Note ---
Hospitalist Progress Note Date of Service Nov 14, 2017. Subjective Pt evaluation today including: conversation w/ patient, physical exam, lab review, review of inpatient medication list Voiding: no voiding problems Patient sitting in bedside chair. Feeling well. Eating and drinking OK. +R shoulder discomfort- Pain is well controlled w/ PRN medications. Discussed anticoagulation- patient understands risk/benefits. In agreement to oral anticoagulation. Transition to Eliquis today. Patient denies any fever, chills, sweats, lightheadedness, dizziness, vision changes, CP, palpitations, edema, SOB, wheezing, cough, abdominal pain, nausea, vomiting, diarrhea, urinary symptoms, melena, numbness/tingling, weakness, anxiety/depression, active bleeding, or new skin discoloration/changes. Medications Current Inpatient Medications Medications (Trade) Dose Ordered Sig/Katie Route Start Time Stop Time Status Last Admin Dose Admin Oxycodone/ Acetaminophen (Percocet 5-325mg Tab) `1-2 TABS FOR PAIN `1 TAB... Q4H PRN PO 11/10/17 16:15 11/24/17 16:14 11/14/17 08:51 2 TAB Acetaminophen (Tylenol Tab) 650 mg Q6H PRN PO 11/10/17 16:15 12/10/17 16:14 Diphenhydramine HCl (Benadryl Cap) 25 mg Q8 PRN PO 11/10/17 16:15 12/10/17 16:14 Zolpidem Tartrate (Ambien Tab) 5 mg HSZ PRN PO 11/10/17 16:15 12/10/17 16:14 Ondansetron HCl (Zofran Inj) 4 mg Q6H PRN IV 11/10/17 16:15 12/10/17 16:14 11/12/17 16:36 4 MG Ferrous Sulfate (Feosol Tab) 325 mg TIDM PO 11/10/17 19:00 12/10/17 18:59 11/14/17 08:52 325 MG Al Hydroxide/Mg Hydroxide (Maalox Susp) 30 ml Q6H PRN PO 11/10/17 16:15 12/10/17 16:14 Docusate Sodium (coLACE CAP) 100 mg BID PO 11/10/17 21:00 12/10/17 20:59 11/14/17 08:52 100 MG Magnesium Hydroxide (Milk Of Magnesia Susp) 30 ml Q6H PRN PO 11/10/17 16:15 12/10/17 16:14 Aspirin (Ecotrin Tab) 81 mg QAM PO 11/11/17 09:00 12/11/17 08:59 11/14/17 08:51 81 MG Furosemide (Lasix Tab) 20 mg DAILY PRN PO 11/10/17 16:15 12/10/17 16:14 Levothyroxine Sodium (Synthroid Tab) 75 mcg DAILYBB PO 11/11/17 06:00 12/11/17 05:59 11/14/17 05:43 75 MCG Sertraline HCl (Zoloft Tab) 100 mg DAILY PO 11/11/17 09:00 12/11/17 08:59 11/14/17 08:51 100 MG Sumatriptan Succinate (Imitrex Tab) 50 mg DAILY PRN PO 11/10/17 16:15 12/10/17 16:14 Tramadol HCl (Ultram Tab) 50 mg Q4 PRN PO 11/10/17 16:15 12/10/17 16:14 11/13/17 17:39 50 MG Cholecalciferol (Vitamin D Tab) 2,000 inter.unit DAILY PO 11/11/17 09:00 12/11/17 08:59 11/14/17 08:52 2,000 INTER.UNIT Cyanocobalamin (Vitamin B-12 Tab) 1,000 mcg QAM PO 11/11/17 09:00 12/11/17 08:59 11/14/17 08:51 1,000 MCG Pantoprazole Sodium (Protonix Tab) 40 mg DAILY PO 11/11/17 09:00 12/11/17 08:59 11/14/17 08:51 40 MG Metoprolol Succinate (Toprol Xl Tab) 25 mg DAILY PO 11/11/17 04:00 12/11/17 08:59 11/14/17 08:52 25 MG Atorvastatin Calcium (Lipitor Tab) 20 mg HS PO 11/11/17 21:00 12/11/17 20:59 11/13/17 20:48 20 MG Metoprolol Tartrate (Lopressor Iv) 5 mg Q6 PRN IV 11/11/17 09:15 12/11/17 09:14 Heparin Sodium/ Dextrose 500 ml @ 18 mls/hr Q24H IV 11/12/17 13:00 12/12/17 12:59 11/13/17 20:47 16 MLS/HR Objective Vital Signs Date Time Temp Pulse Resp B/P (MAP) Pulse Ox O2 Delivery O2 Flow Rate FiO2 11/14/17 08:00 Room Air 11/14/17 07:15 36.2 91 18 129/82 (98) 95 Room Air 11/14/17 04:02 36.0 93 18 114/77 (89) 93 11/14/17 04:00 93 Room Air 11/14/17 00:01 37.4 108 18 120/74 (89) 94 11/14/17 00:01 93 Room Air 11/13/17 20:00 97 Room Air 11/13/17 19:45 37.0 92 18 122/71 (88) 97 11/13/17 16:00 Room Air 11/13/17 15:00 36.7 96 18 102/68 (79) 93 Nasal Cannula 11/13/17 12:11 36.8 104 18 96/61 (73) 93 Room Air 11/13/17 12:00 Room Air Physical Exam General Appearance: no apparent distress Eyes: normal inspection, PERRL ENT: hearing grossly normal Neck: supple Respiratory/Chest: lungs clear, no respiratory distress, no accessory muscle use Cardiovascular: + systolic murmur, + irregularly irregular (rate controlled) Abdomen: normal bowel sounds, non tender, soft Extremities: no calf tenderness, + pertinent finding (RUE in sling; BLEs in TEDs) Neurologic/Psychiatric: alert, normal mood/affect, oriented x 3 Skin: normal color, warm/dry, no rash Laboratory Results Last 24 Hours Test 11/14/17 04:28 Activated Partial Thromboplast Time 34.5 SECONDS Partial Thromboplastin Ratio 1.3 Assessment and Plan Patient is an 87 y/o female, with PMHx of paroxysmal a.fib, HLD, hypothyroidism , anxiety, depression, and GERD, with R humerus fracture s/p R ORIF by Dr. Zamora on 11/10. Hospitalist team was consulted for medical management. R humerus fracture s/p R ORIF by Dr. Zamora on 11/10: - Surgical management, pain management, PT/OT, and DVT prophylaxis as per orthopedics - Continue Vitamin D supplement - Bowel regimen ordered - Encourage incentive spirometer - Postop CBC and PRP- STABLE Paroxysmal a.fib, HLD, peripheral edema- STABLE: - Tele for cardiac monitoring postop- STABLE- transfer to med/surg - Continue Metoprolol w/ hold parameters, ASA, Lasix PRN, Lipitor - IV Metoprolol PRN for HR >120 - No anticoagulation prior to admission- started IV heparin gtt (OK by orthopedics)- transition to Eliquis 2.5 mg BID (age/weight) (copay ~$29/month) - ECHO 11/10/2017- preserved EF, no diastolic dysfunction, no wall abnormalities , mild to moderate aortic stenosis w/ trace regurgitation, mild mitral regurgitation Hypothyroidism- TSH 5.3: Continue Synthroid 75 mcg daily and follow-up w/ PCP Anxiety, depression: Continue Zoloft Migraines: Continue Imitrex PRN GERD: Protonix daily- resume Prilosec at discharge DVT prophylaxis: Eliquis BID Code status: LEVEL I, FULL- no prolonged measures Dispo: As per primary team- medically stable for discharge by medicine, will sign-off. Please call w/ any questions/concerns
[2017-11-14] MEDS ORDERED: OXYC-57 PO (13:44)
[2017-11-14] MEDS: ATORVASTATIN 20 MG TAB PO SCH (20:34)
[2017-11-14] MEDS: APIXABAN 2.5 MG TAB PO SCH (20:35)
[2017-11-15] MEDS: LEVOTHYROXINE 75 MCG TAB PO SCH (05:49)
[2017-11-15 07:01] VITALS: BP 118/51; PULSE 72; TEMP 36.9; O2SAT 94
[2017-11-15 08:00] LABS: HEMATOCRIT 25.5 % (37-47); HEMOGLOBIN 8.4 g/dL (12.0-16.0); MEAN CELL VOLUME 93.4 fL (80-100); MEAN CORPUSCULAR HEMOGLOBIN 30.8 pg (25-34); MEAN CORPUSCULAR HGB CONC 32.9 g/dl (32-36); MEAN PLATELET VOLUME 8.9 fL (7.4-10.4); PLATELET COUNT 367 K/uL (130-400); RED CELL DISTRIBUTION WIDTH SD 47.7 fL (36.4-46.3); WHITE BLOOD COUNT 5.75 K/uL (4.8-10.8)
[2017-11-15 08:06] LABS: PTT PATIENT 24.5 SECONDS (21.0-31.0)
[2017-11-15] MEDS: CYANOCOBALAMIN 500 MCG TAB (VIT B-12) PO SCH (08:07)
[2017-11-15] MEDS: APIXABAN 2.5 MG TAB PO SCH (08:07)
[2017-11-15] MEDS: METOPROLOL SUCC 25MG EXT REL TAB PO SCH (08:07)
[2017-11-15] MEDS: ASPIRIN 81 MG ECTAB PO SCH (08:07)
[2017-11-15] MEDS: SERTRALINE HCL 100 MG TAB PO SCH (08:08)
[2017-11-15] MEDS: CHOLECALCIFEROL 1000 INTER.UNIT TAB PO SCH (08:08)
[2017-11-15] MEDS: FERROUS SULFATE 325 MG TAB PO SCH ×2 (08:08→12:58)
[2017-11-15] MEDS: PANTOprazole SOD 40 MG TAB PO SCH (08:08)
[2017-11-15] MEDS: DOCUSATE SODIUM 100 MG CAP PO SCH (08:08)
--- NOTE | 2017-11-15 11:34 | Orthopedic Progress Note ---
Orthopedic Progress Note Date of Service Nov 15, 2017. Subjective Reports: feeling well, Denies: chest pain, SOB, nausea / vomiting, light headedness, calf pain Objective calves soft nontender, N/V intact, capillary refill less than 2 sec., incision C /D/I, A&O x3 DRESSING CHANGED TODAY. SHE ONLY HAD A SOFT DRESSING. SHE HAD MODERATE EDEMA AND ECCHYMOSIS AT THE HAND. REAPPLIED ALONG THE UPPER ARM ONLY. Date Time Temp Pulse Resp B/P (MAP) Pulse Ox O2 Delivery O2 Flow Rate FiO2 11/15/17 07:50 Room Air 11/15/17 07:01 36.9 72 18 118/51 (73) 94 Room Air 11/14/17 23:20 36.8 78 16 113/54 (73) 94 Room Air 11/14/17 20:00 Room Air 11/14/17 15:20 37.1 63 16 103/65 (78) 93 Room Air 11/14/17 14:30 37.2 67 16 115/58 (77) 93 Room Air 11/14/17 12:00 Room Air Laboratory Results 24 Hours: Test 11/15/17 07:40 Hematocrit 25.5 % Hemoglobin 8.4 g/dL Assessment & Plan Assessment: POD 5 s/p ORIF right humerus May be up with PT/OT; NWB on RUE MEDICAL MGT Started on Heparin with plans to transition to oral anticoagulation. PLAN TO START ELIQUIS TODAY Planning for [facility] (PEND[facility]) vs [facility]. PATIENT AND DAUGHTER NOW COMFORTABLE WITH PATIENT GOING HOME IF DENIED. WILL WAIT ON [facility] AUTH. IF DENIED , PLAN ON HOME TODAY WITH HH. HOPEFULLY DC'ING THE DRESSING WILL HELP THE HAND SWELLING RESOLVE. WILL MONITOR. Inhouse Planning Pain Management: Percocet, Ultram DVT Prophylaxis: TEDs, SCDs Discharge Planning Discharge Planning: uncertain
[2017-11-15 14:52] VITALS: BP 100/64; PULSE 68; TEMP 37; O2SAT 96
[2017-11-15 15:44] VITALS: BP 100/64; PULSE 68; TEMP 37; O2SAT 96
== END 2017-11-15 16:18 | DRG 494 ==
LOC: C.ACU 07:45 → C.2T 16:23 → ENRESERV 17:37 → C.MSW 11-14 14:30
PROVIDERS: ADMIT Orthopaedic Surgery; ATTEND Orthopaedic Surgery
PROC: 0PSF04Z Reposition Right Humeral Shaft with Internal Fixation Device, Open Approach (ICD-10-PCS; principal; 2017-11-10 10:10)
DX: S42.301A Unspecified fracture of shaft of humerus, right arm, initial encounter for closed fracture (principal); W19.XXXA Unspecified fall, initial encounter; I48.0 Paroxysmal atrial fibrillation; E78.5 Hyperlipidemia, unspecified; E03.9 Hypothyroidism, unspecified; K21.9 Gastro-esophageal reflux disease without esophagitis; F41.9 Anxiety disorder, unspecified; F32.9 Major depressive disorder, single episode, unspecified; G43.909 Migraine, unspecified, not intractable, without status migrainosus; Z96.653 Presence of artificial knee joint, bilateral; Z90.49 Acquired absence of other specified parts of digestive tract; Z98.0 Intestinal bypass and anastomosis status; Z90.710 Acquired absence of both cervix and uterus; Z79.01 Long term (current) use of anticoagulants; Z79.82 Long term (current) use of aspirin; Z79.891 Long term (current) use of opiate analgesic; Z79.899 Other long term (current) drug therapy; Z88.8 Allergy status to other drugs, medicaments and biological substances; Z82.3 Family history of stroke